=== PATIENT | male | born 1935 | race Caucasian/White ===

== ENCOUNTER 2017-12-17 00:20 | Day surgery (SDC) | payer MEDICARE, BC ==
[~2017-12-17] VITALS: Ht 177.8 cm; Wt 82.1 kg
[~2017-12-17 00:20] MED LIST: ADV100/50 INH; ALB0.5 INH; ALB6.7R INH; ALBMDV INH; ASPI-715 PO; ATOR40TA69 PO; ATR80PT PO; CEP500 PO; CET10 PO; CHOL10005 PO; COM14R IH; COM14R INH; CYA100 PO; DIP25 PO; DOXY-179 PO; ERG400 PO; LEVO75TA73 PO; LORA-629 PO; LUTE1CAP PO; METO1TAB5 PO; METO25TA23 PO; METO37.5 PO; MON10 PO; MULT1CAP59 PO; NIA100 PO; OMEG-11 PO; PRE10 PO; PRED20TA6 PO; RIVA20TA PO; SIM10 PO; SIMV-44 PO; TAMS0.4C70 PO; VAL80 PO; VALS1TAB96 PO; VALS40TA7 PO; VERA180T53 PO; WARF2.5T11 PO; WARF5TAB23 PO; ZINC50TA43 PO
--- NOTE | 2017-12-17 07:00 | Post Operative Progress Note ---
Post Operative Progress Note Date: December 17, 2017 Time: 10:10 Surgeon: pranav Anesthesia: dr ahumada Pre-Op Diagnosis: history of polyps Post-Op Diagnosis: 2 mm polyp in rightr colon and sigmoid diverticula Procedure(s): colonoscopy and poypectomy YOVANI RODRIGUEZ MD December 17, 2017 07:00
--- NOTE | 2017-12-17 07:01 | Short(Outpt) Discharge Summary ---
Discharge Summary Reason for Hosp/Final Diag: (1) Encounter for colonoscopy due to history of adenomatous colonic polyps Hospital Course & Plan: 2 mm polyp in right colon and sigmoid diverticula Departure Discharge to: Home Discharge Instructions Home Meds Reported Medications Metoprolol Tartrate (Metoprolol Tartrate) 37.5 Mg Tablet, 12.5 MG PO QDAY 12/11/17 Lutein/Zeaxanthin (LUTEIN-ZEAXANTHIN 25-5 MG SFGL) 1 Each Capsule, 1 EACH PO BID , CAPSULE 12/11/17 Loratadine (LORATADINE) 10 Mg Tablet, 10 MG PO PRN 12/11/17 Levothyroxine Sodium (LEVOTHYROXINE SODIUM) 75 Mcg Tablet, 88 MCG PO QDAY, TAB 12/11/17 Zinc Gluconate (ZINC) 50 Mg Tablet, 50 MG PO QDAY 12/11/17 Rivaroxaban 20 Mg (XARELTO 20 MG) 20 Mg Tablet, 20 MG PO QDAY, TAB 12/11/17 Valsartan (DIOVAN) 80 Mg Tablet, 80 MG PO QDAY 12/11/17 Tamsulosin Hcl (TAMSULOSIN HCL) 0.4 Mg Cap.er.24h, 0.8 MG PO, CAP 12/11/17 Atorvastatin Calcium (ATORVASTATIN CALCIUM) 40 Mg Tablet, 1 TAB PO BID, TAB 12/11/17 Verapamil Hcl (VERAPAMIL ER) 180 Mg Tablet.er, 180 MG PO DAILY 02/12/16 Cholecalciferol (Vitamin D3) (VITAMIN D3) 1,000 Unit Tablet, 1000 UNIT PO DAILY , TAB 02/12/16 Diphenhydramine Hcl (Benadryl) 25 Mg Cap, 25 MG PO HS Y for PRN 01/09/12 Cetirizine Hcl (Zyrtec) 10 Mg Tab, 10 MG PO BID Y for PRN 01/09/12 Cyanocobalamin (VITAMIN B-12 (OR EQUIV)) 100 Mcg Tab, 100 MCG PO DAILY 01/09/12 Aspirin (Aspirin) 81 Mg Tablet.dr, 81 MG PO BID 01/09/12 Albuterol/Ipratropium (Combivent Inhaler) 14.7 Gm Aer.w.adap, 18 MCG IH 2 PUFFS BID 01/09/12 Montelukast Sodium (Singulair) 10 Mg Tab, 10 MG PO QHS 01/09/12 Multivitamins (Multivitamin) 1 Each Capsule, 1 EACH PO 09/29/11 Discontinued Reported Medications Valsartan (DIOVAN) 40 Mg Tablet, 40 MG PO QDAY 02/12/16 Warfarin Sodium (WARFARIN SODIUM) 5 Mg Tablet, 5 MG PO QDAY 12/13/13 Atorvastatin (LIPITOR) 80 Mg Tab, 1 TAB PO QDAY, TAB TAKE ONE TABLET BY MOUTH ONCE A DAY AT BED TIME 12/13/13 Discontinued Scripts Tamsulosin Hcl (TAMSULOSIN HCL) 0.4 Mg Cap.er.24h, 0.4 MG PO BID, #180 TAB 3 Refills Prov:ERIK SHIN [employer]-BC, ONC 03/24/17 Diet: High Fiber Activity: As Tolerated YOVANI RODRIGUEZ MD December 17, 2017 07:01
[2017-12-17] MEDS ORDERED: PROPOFOL EMUL(*) 10MG/ML 20 ML 40 ML ONE (07:11)
[2017-12-17 08:26] VITALS: BP 143/88
[2017-12-17] MEDS ORDERED: LIDOCAINE/SOD BICARB 8.4% SYR ID ONE (08:30)
[2017-12-17] MEDS ORDERED: NORMOSOL R SOLN(*) 1000 ML BAG 1,000 ML IV PRN (08:30)
[2017-12-17 10:12] VITALS: BP 96/48
[2017-12-17 10:27] VITALS: BP 115/56
[2017-12-17 10:48] VITALS: BP_SYST 116; BP_SYST 139; BP_DIAS 64; BP_DIAS 70
--- NOTE | 2017-12-17 15:20 | OPERATIVE REPORT 1 ---
EVENT DATE: December 17, 2017 SURGEON: Ronaldo Avendano MD ANESTHESIOLOGIST: Jona Adrian MD ANESTHESIA: Sedation. PREOPERATIVE DIAGNOSES 1. Surveillance colonoscopy. 2. Personal history of polyps. POSTOPERATIVE DIAGNOSES 1. A 2 mm polyp in the right colon. 2. Diverticulosis in the sigmoid colon. PROCEDURE PERFORMED Colonoscopy with polypectomy. DESCRIPTION OF PROCEDURE Patient was placed in the left lateral decubitus position and given intravenous sedation. Rectal exam was unremarkable. Flexible colonoscope was inserted and advanced to the cecum. He had a good prep. He had quite a bit of liquid stool. We spent some time suctioning. The ileocecal valve, base of the cecum, appendiceal orifice were identified. Scope was retroflexed in the cecum. It was then slowly withdrawn. In the mid right colon, he had a small, 2 mm projection. This was removed with the cold cup. The rest of the right colon, transverse, and descending colon were normal. He had diverticula in the sigmoid colon. No evidence of diverticulitis. Rectum was normal. Scope was retroflexed. That appeared to be normal. Patient tolerated the procedure well. No apparent complication. Patient most likely will not require repeat colonoscopy because of his age. [facility]
== END 2017-12-17 11:05 | disposition home or self-care (01) ==
LOC: OR 00:20
PROVIDERS: ATTEND Surgery
DX: Z12.11 Encounter for screening for malignant neoplasm of colon (principal); D12.6 Benign neoplasm of colon, unspecified; Z86.010 Personal history of colon polyps; K57.30 Diverticulosis of large intestine without perforation or abscess without bleeding
CPT/HCPCS: 00811; 45380; 88305; J2704

== ENCOUNTER → 2018-03-21 | Outpatient (CLI) | payer MEDICARE, BC ==
--- NOTE | 2018-03-21 11:31 | RADIOLOGY IMAGING REPORT ---
[place] [facility] [place]: Jona Lara : 1935 MR: [id number] V: [id number] EXAM DATE: ORDERING PHYSICIAN: DORY DELUCA TECHNOLOGIST: Location: [facility] Patient: Jona Lara : 1935 Visit/Account:[id number] Date of Sevice: 03/21/[address] scan without contrast HISTORY: Fall COMPARISONS: None TECHNIQUE: Non-contrast head CT was performed with sagittal and coronal reformations. One of the following dose optimization techniques was utilized in the performance of this exam: autom ated exposure control; adjustment of the mA and/or kV according to patient size; or use of iterative reconstruction technique. Specific details can be referenced in the facility's radiology CT exam ope rational policy. FINDINGS: There is no intracranial hemorrhage, hydrocephalus or midline shift. The basal cisterns, young-white differentiation, and convexity sulci are maintained. Cataract postsurgical change noted. Right basal ganglia perivascular space noted. Patchy white matter hypoattenuation. Clear mastoid air cells. Mild to moderate left maxillary sinus mucosal thickening. No acute osseous a bnormality. IMPRESSION: No acute intracranial abnormality. Mild to moderate chronic small vessel ischemic change. Report Dictated By: Janak Garcia MD at 03/21/2018 11:24 AM Report E-Signed By: Janak Garcia MD at 03/21/2018 11:27 AM WSN:[id number]
== END ==
LOC: CT 10:57
PROVIDERS: ATTEND Family Medicine
DX: I67.82 Cerebral ischemia (principal)

== ENCOUNTER → 2018-04-19 | Emergency (ER) | payer MEDICARE, BC ==
[~2018-04-19] MED LIST changes: +CYAN250T15 PO; +DIPHTH/TETANUS/ACEL. PERTUSSIS IM ONLY ONE; +IOPAMIDOL 76% 75 ML INFUS BTL 0 ML ONE; +IOPAMIDOL 76% 75 ML INFUS BTL 75 ML ONE; +LEVO88TA45 PO; +NS(*) 0.9% 1000 ML BAG 1,000 ML IV ONE; +ONDA4TAB PO; +ONDANSETRON 4 MG ODT TABDP SL ONE; +ONDANSETRON 4 MG ODT TH SL ONE; +TRAM-420 PO; +traMADol 50 MG TAB TH 2 TAB/BOTTLE PO ONE
--- NOTE | 2018-04-19 16:46 | ER Report ---
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 He states that they minutes prior to arrival his right knee buckled underneath him as he was going down the stairs. He subsequently fell down 14 stairs. No loss of consciousness. No neck pain. No focal neurologic deficits. He states that his only focal area of pain is in his right scapula. He otherwise has no complaints, and does not want any pain medication. Remainder of the 14 system rev: Yes (RENETTA GORDON MD) Allergies: Coded Allergies: No Known Drug Allergies (Unverified , 04/19/18) Home Meds Active Scripts Tramadol Hcl (TRAMADOL HCL) 50 Mg Tablet, 1 TAB PO Q6H, #15 MG TAKE ONE TABLETS BY MOUTH EVERY SIX HOURS NEEDED Prov:LLOYD SHINY Holly DO 04/19/18 Ondansetron (ZOFRAN ODT) 4 Mg Tab.rapdis, 4 MG PO every 6 hours PRN for NAUSEA/VOMITING, #15 TAB TAKE 1 TABLET BY MOUTH EVERY 12 HOURS Prov:RYAN SHIN Holly DO 04/19/18 Reported Medications Metoprolol Succinate (METOPROLOL SUCCINATE) 25 Mg Tab.er.24h, 0.5 TAB PO QDAY, TAB 04/19/18 Levothyroxine Sodium (LEVOTHYROXINE SODIUM) 88 Mcg Tablet, 88 MCG PO QDAY 04/19/18 Cyanocobalamin (Vitamin B-12) (VITAMIN B-12) 250 Mcg Tablet, 250 MCG PO DAILY 04/19/18 Lutein/Zeaxanthin (LUTEIN-ZEAXANTHIN 25-5 MG SFGL) 1 Each Capsule, 1 EACH PO BID, CAPSULE 12/11/17 Loratadine (LORATADINE) 10 Mg Tablet, 10 MG PO PRN 12/11/17 Zinc Gluconate (ZINC) 50 Mg Tablet, 50 MG PO QDAY 12/11/17 Rivaroxaban 20 Mg (XARELTO 20 MG) 20 Mg Tablet, 20 MG PO QDAY, TAB 12/11/17 Valsartan (DIOVAN) 80 Mg Tablet, 80 MG PO QDAY 12/11/17 Tamsulosin Hcl (TAMSULOSIN HCL) 0.4 Mg Cap.er.24h, 0.8 MG PO, CAP 12/11/17 Atorvastatin Calcium (ATORVASTATIN CALCIUM) 40 Mg Tablet, 1 TAB PO BID, TAB 12/11/17 Verapamil Hcl (VERAPAMIL ER) 180 Mg Tablet.er, 180 MG PO DAILY 02/12/16 Cholecalciferol (Vitamin D3) (VITAMIN D3) 1,000 Unit Tablet, 1000 UNIT PO DAILY, TAB 02/12/16 Cetirizine Hcl (Zyrtec) 10 Mg Tab, 10 MG PO DAILY PRN for PRN 01/09/12 Aspirin (Aspirin) 81 Mg Tablet.dr, 81 MG PO BID 01/09/12 Albuterol/Ipratropium (Combivent Inhaler) 14.7 Gm Aer.w.adap, 18 MCG IH 2 PUFFS BID 01/09/12 Montelukast Sodium (Singulair) 10 Mg Tab, 10 MG PO QHS 01/09/12 Multivitamins (Multivitamin) 1 Each Capsule, 1 EACH PO 09/29/11 Discontinued Reported Medications Metoprolol Tartrate (Metoprolol Tartrate) 37.5 Mg Tablet, 12.5 MG PO QDAY 12/11/17 Levothyroxine Sodium (LEVOTHYROXINE SODIUM) 75 Mcg Tablet, 88 MCG PO QDAY, TAB 12/11/17 Diphenhydramine Hcl (Benadryl) 25 Mg Cap, 25 MG PO HS PRN for PRN 01/09/12 Cyanocobalamin (VITAMIN B-12 (OR EQUIV)) 100 Mcg Tab, 100 MCG PO DAILY 01/09/12 Reviewed Nurses Notes: Yes Old Medical Records Reviewed: Yes (RENETTA GORDON MD) Hx Smoking: No (quit 1965 x 15 yrs ) Smoking Status: Former Smoker Hx Substance Use Disorder: No Hx Alcohol Use: Yes (RARE) (RENETTA GORDON MD) Constitutional Vital Sign - Last 24 Hours 04/19/18 04/19/18 04/19/18 04/19/18 16:48 16:50 17:00 17:15 Temp 98.5 Pulse 87 55 56 Resp 16 6 10 B/P (MAP) 147/69 147/69 (95) Pulse Ox 95 95 96 O2 Delivery Room Air 04/19/18 04/19/18 04/19/18 04/19/18 17:30 17:45 18:15 18:20 Pulse 56 53 49 50 Resp 8 23 24 10 B/P (MAP) 130/61 (84) Pulse Ox 95 94 95 98 04/19/18 04/19/18 04/19/18 04/19/18 18:25 18:30 18:35 18:40 Pulse 49 48 51 48 Resp 20 15 26 20 B/P (MAP) 132/61 (84) Pulse Ox 96 95 92 97 04/19/18 04/19/18 04/19/18 04/19/18 18:45 18:50 18:55 19:00 Pulse 48 47 49 50 Resp 22 15 15 16 B/P (MAP) 142/65 (90) Pulse Ox 97 97 97 96 04/19/18 04/19/18 04/19/18 04/19/18 19:05 19:10 19:15 19:34 Pulse 63 64 60 62 Resp 22 14 20 12 Pulse Ox 92 92 94 95 04/19/18 04/19/18 04/19/18 04/19/18 19:39 19:44 19:49 19:54 Pulse 61 61 58 59 Resp 15 12 14 14 Pulse Ox 95 96 95 95 04/19/18 04/19/18 04/19/18 04/19/18 19:59 20:00 20:04 20:24 Pulse 60 68 Resp 15 17 B/P (MAP) 134/62 (86) Pulse Ox 96 95 95 04/19/18 04/19/18 04/19/18 04/19/18 20:29 20:30 20:34 20:39 Pulse 68 69 66 B/P (MAP) 108/62 (77) Pulse Ox 97 97 95 04/19/18 04/19/18 04/19/18 04/19/18 20:44 20:49 20:54 20:59 Pulse 67 69 68 70 Pulse Ox 95 95 96 95 04/19/18 04/19/18 21:00 21:04 Pulse 66 B/P (MAP) 122/80 (94) Pulse Ox 95 Intake and Output 04/19/18 04/19/18 04/20/18 15:00 23:00 07:00 Intake Total 1000 ml Balance 1000 ml (RYAN SHIN DO) Physical Exam General Appearance: The patient is alert, has no immediate need for airway protection and no current signs of toxicity. Head: Hematoma to the left forehead Eyes: Pupils equal and round no injection. Respiratory: Chest is non tender, lungs are clear to auscultation. No tenderness to palpation of the chest. No crepitus. Cardiac: regular rate and rhythm Gastrointestinal: Abdomen is soft and non tender, no masses, bowel sounds normal. Musculoskeletal: No focal bony tenderness to palpation. Multiple areas of hematomas Neck: Neck is supple and non tender. Extremities have full range of motion and are non tender. Skin: Multiple areas of skin tears. No lacerations. Neuro: Moves all extremities equally DIFFERENTIAL DIAGNOSIS: After history and physical exam differential diagnosis was considered for internal bleeding, fractures, dislocations (RENETTA GORODN MD) Medical Decision Making Data Points Result Diagram: 04/19/18 1657 04/19/18 1657 Laboratory Hematology Test 04/19/18 16:57 Red Blood Count 5.22 M/uL (4.00-5.60) Mean Corpuscular Volume 89.2 fL (80.0-96.0) Mean Corpuscular Hemoglobin 30.1 pg (26.0-33.0) Mean Corpuscular Hemoglobin Concent 33.7 g/dL (32.0-36.0) Red Cell Distribution Width 13.7 % (11.5-14.5) Mean Platelet Volume 8.3 fL (7.2-11.1) Neutrophils (%) (Auto) 59.9 % (39.4-72.5) Lymphocytes (%) (Auto) 26.3 % (17.6-49.6) Monocytes (%) (Auto) 8.4 % (4.1-12.4) Eosinophils (%) (Auto) 3.2 % (0.4-6.7) Basophils (%) (Auto) 2.2 % (0.3-1.4) Nucleated RBC Relative Count (auto) 0.1 /100WBC Neutrophils # (Auto) 4.5 K/uL (2.0-7.4) Lymphocytes # (Auto) 2.0 K/uL (1.3-3.6) Monocytes # (Auto) 0.6 K/uL (0.3-1.0) Eosinophils # (Auto) 0.2 K/uL (0.0-0.5) Basophils # (Auto) 0.2 K/uL (0.0-0.1) Nucleated RBC Absolute Count (auto) 0.01 K/uL Sodium Level 140 mmol/L (137-145) Potassium Level 3.9 mmol/L (3.5-5.0) Chloride Level 103 mmol/L (98-107) Carbon Dioxide Level 26 mmol/L (22-30) Blood Urea Nitrogen 16 mg/dl (9-21) Creatinine 0.70 mg/dl (0.66-1.25) Glomerular Filtration Rate Calc > 60.0 Random Glucose 109 mg/dl (75-110) Calcium Level 9.5 mg/dl (8.4-10.2) Total Bilirubin 0.8 mg/dl (0.2-1.3) Aspartate Amino Transf (AST/SGOT) 52 U/L (0-35) Alanine Aminotransferase (ALT/SGPT) 55 U/L (0-56) Alkaline Phosphatase 69 U/L (0-126) Total Protein 6.9 g/dl (6.3-8.2) Albumin 4.1 g/dl (3.5-5.0) Chemistry Test 04/19/18 16:57 White Blood Count 7.6 k/uL (4.5-11.0) Red Blood Count 5.22 M/uL (4.00-5.60) Hemoglobin 15.7 g/dL (14.0-18.0) Hematocrit 46.6 % (42.0-52.0) Mean Corpuscular Volume 89.2 fL (80.0-96.0) Mean Corpuscular Hemoglobin 30.1 pg (26.0-33.0) Mean Corpuscular Hemoglobin Concent 33.7 g/dL (32.0-36.0) Red Cell Distribution Width 13.7 % (11.5-14.5) Platelet Count 170 K/uL (150-450) Mean Platelet Volume 8.3 fL (7.2-11.1) Neutrophils (%) (Auto) 59.9 % (39.4-72.5) Lymphocytes (%) (Auto) 26.3 % (17.6-49.6) Monocytes (%) (Auto) 8.4 % (4.1-12.4) Eosinophils (%) (Auto) 3.2 % (0.4-6.7) Basophils (%) (Auto) 2.2 % (0.3-1.4) Nucleated RBC Relative Count (auto) 0.1 /100WBC Neutrophils # (Auto) 4.5 K/uL (2.0-7.4) Lymphocytes # (Auto) 2.0 K/uL (1.3-3.6) Monocytes # (Auto) 0.6 K/uL (0.3-1.0) Eosinophils # (Auto) 0.2 K/uL (0.0-0.5) Basophils # (Auto) 0.2 K/uL (0.0-0.1) Nucleated RBC Absolute Count (auto) 0.01 K/uL Glomerular Filtration Rate Calc > 60.0 Calcium Level 9.5 mg/dl (8.4-10.2) Total Bilirubin 0.8 mg/dl (0.2-1.3) Aspartate Amino Transf (AST/SGOT) 52 U/L (0-35) Alanine Aminotransferase (ALT/SGPT) 55 U/L (0-56) Alkaline Phosphatase 69 U/L (0-126) Total Protein 6.9 g/dl (6.3-8.2) Albumin 4.1 g/dl (3.5-5.0) (RYAN SHIN DO) EKG/Imaging Imaging Results: CT scan of the head was obtained. The results of the study are no acute f indings. The study was read by the radiologist. I viewed the images myself on the PACS system. Results: CT scan of the C-spine without contrast was obtained. The results of the study are no acute findings. The study was read by the radiologist. I viewed the images myself on the PACS system. Results: CT scan of the chest with contrast was obtained. The results of the study are CHEST W/O CONTRAST HISTORY: fall multiple contusion on Xarelto TECHNIQUE: CT chest without intravenous contrast. One of the following dose optimization techniques was utilized in the performa nce of this exam: Automated exposure control; adjustment of the mA and/or kV according to the patient's size; or use of an iterative reconstruction technique. Specific details can be referenced in the facility's radiology CT exam operational policy. CONTRAST: None. COMPARISON: CT abdomen 04/19/2018 FINDINGS: Heart/vessels: Heart is not enlarged. Dense atherosclerotic calcifications of the arch vessels and coronary arteries. Aortic valvuloplasty. Mitral annular calcifications. Mediastinum: No adenopathy Lymph nodes: Negative. Lungs/pleura: Calcified granuloma at the left apex. No additional pulmonary parenchymal abnormalities. Central airways are patent. Visualized upper abdomen: Kidneys appear mildly atrophic, contrast in the collecting system Bones/soft tissues: Soft tissue hematoma involving the right shoulder/back better characterized by this examination; hematoma appears to involve the supraspinatus, teres and latissimus muscles and extends to the midline back. No adjacent scapular or displaced rib fracture is identified. Subtle cortical irregularity is seen within the posterior aspect of the fifth rib (series 2, image 34), equivocal for fracture. Additional subtle irregularity is noted within the anterior aspect of the eighth rib (series 2, image 11) Flowing osteophytosis of the mid thoracic spine may reflect dish. IMPRESSION: Left back hematoma redemonstrated without underlying scapular or displaced rib fracture. Equivocal nondisplaced fifth and eighth rib fractures, correlate with point tenderness. Negative underlying pulmonary parenchymal abnormality or pneumothorax Additional chronic findings as above. The study was read by the radiologist. I viewed the images myself on the PACS system. Results: CT scan of the abdomen and pelvis with IV contrast was obtained. The results of the study are ABDOMEN/PELVIS WITH CONTRAST Fell down steps on Xarelto TECHNIQUE: Spiral scan was through the abdomen and pelvis during injection of nonionic iodinated intravenous contrast. Contrast: 75 mL of IV [id number]. COMPARISON STUDIES: none. One of the following dose optimization techniques was utilized in the performance of this exam: Automated exposure control; adjustment of the mA and/or kV according to the patient's size; or use of an iterative reconstruction technique. Specific details can be referenced in the facility's radiology CT exam operational policy. FINDINGS: Liver / biliary: No liver laceration. No perihepatic fluid. Gallbladder unremarkable Pancreas: negative Spleen: No splenic laceration or perisplenic fluid Adrenal glands: negative Kidneys / retroperitoneum: negative Pelvic structures: Bladder unremarkable. Prostate seeds noted. Bowel / peritoneum / mesenteries: No colonic mass lesion stricture or inflammatory change. No interloop fluid. Vessels: Atherosclerotic disease. No aneurysmal change. No retroperitoneal hematoma noted. Musculoskeletal / Body wall: negative Lymph node assessment: No obvious acute fractures of the visualized lower thoracic lumbar are sacral spine. No pelvic fractures noted. Both hip joints well-maintained. Central and right paravertebral soft tissue change compatible with a hematoma extending from the L4 through the coccygeal region. Lower chest: Unremarkable. No pneumothorax. Questionable anterior eighth right rib fracture nondisplaced IMPRESSION: 1. Soft tissue hematoma involving the central right lower back as described. 2. Questionable anterior right anterior eighth rib fracture artifact. Recommend clinical correlation The study was read by the radiologist. I viewed the images myself on the PACS system. (RYAN SHIN DO) ED Course/Re-evaluation ED Course Care was assumed at shift change with diagnostic CT is pending, head, neck, chest, abdomen and pelvis. Patient on Xarelto. Patient with a large hematoma on his right flank and his right arm. Diagnostic CT show potentially tooth fractured ribs on the right side. A hematoma. Head and neck are unremarkable. Patient was advised conservative treatment. Patient was offered admission if he thought it was necessary. He does have 2 possible fractured ribs He has leftover spirometer at home which he will use to keep his aeration up. He is given tramadol for pain relief, Zofran for nausea. Patient advised a low threshold return for any worsening. Decision to Disposition Date: Apr 19, 2018 Decision to Disposition Time: 20:58 (RYAN SHIN DO) Depart Departure Latest Vital Signs Vital Signs Date Time Temp Pulse Resp B/P (MAP) Pulse Ox O2 Delivery O2 Flow Rate FiO2 04/19/18 21:04 66 95 04/19/18 21:00 122/80 (94) 04/19/18 20:04 17 04/19/18 16:48 98.5 Room Air (RYAN SHIN DO) Impression: Primary Impression: Fall (on) (from) other stairs and steps, initial encounter Additional Impressions: Multiple contusions Traumatic hematoma of lower back Hematoma of arm Fracture, ribs Condition: Improved Disposition: HOME OR SELF-CARE Referrals: KATH GARIBAY DO (PCP) New Scripts Tramadol Hcl (TRAMADOL HCL) 50 Mg Tablet 1 TAB PO Q6H, #15 MG TAKE ONE TABLETS BY MOUTH EVERY SIX HOURS NEEDED Prov: RYAN SHIN DO 04/19/18 Ondansetron (ZOFRAN ODT) 4 Mg Tab.rapdis 4 MG PO every 6 hours PRN for NAUSEA/VOMITING, #15 TAB TAKE 1 TABLET BY MOUTH EVERY 12 HOURS Prov: RYAN SHIN DO 04/19/18 Patient Instructions: Contusion in Adults (ED), Rib Fracture (ED) Additional Instructions: Apply ice packs to affected areas Hold Xarelto for 4 days Wear six-inch Og wraps for compression of hematomas Follow-up with primary care and cardiology as planned Return to the ER for any worsening, especially difficulty breathing fever chills or coughing up blood Problem Qualifiers Additional Impressions: Traumatic hematoma of lower back Encounter type: initial encounter Qualified Codes: S30.0XXA - Contusion of lower back and pelvis, initial encounter Hematoma of arm Encounter type: initial encounter Laterality: left Qualified Codes: S40.022A - Contusion of left upper arm, initial encounter Fracture, ribs Encounter type: initial encounter Rib fracture type: multiple ribs Fracture type: closed Laterality: right Qualified Codes: S22.41XA - Multiple fractures of ribs, right side, initial encounter for closed fracture RENETTA GORDON MD Apr 19, 2018 16:46 RYAN SHIN DO Apr 19, 2018 21:02
[2018-04-19 17:27] LABS: PLATELET COUNT, AUTOMATED 170 K/uL (150-450)
--- NOTE | 2018-04-19 20:01 | RADIOLOGY IMAGING REPORT ---
FACILITY: [facility] - [place] PATIENT NAME: Jona Lara : 1935 MR: [id number] V: [id number] EXAM DATE: ORDERING PHYSICIAN: RENETTA GORDON TECHNOLOGIST: Location: [facility] [place] Patient: Jona Lara : 1935 Visit/Account:[id number] Date of Sevice: 04/19/2018 CT examination of the head and cervical spine without contrast. Indication: Fall, contusions. On Xarelto Comparison: None available. Technique: Noncontrast CT images of the head and cervical spine were obtained with 2.5 mm axial [facility] e images. Sagittal and coronal reformatted images were obtained reviewed. CT with contrast of the chest was performed. Sagittal, coronal images were reviewed. Findings: Head: Small hematoma is noted overlying the right frontal bone. 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 Given the lung volumes, th e ventricular system has a normal size and appearance. There is no evidence of intracranial mass, mas s effect, midline shift, intraparenchymal hemorrhage or abnormal extra-axial fluid collection. The ca lvarium is intact. Mild mucosal thickening is seen in the left maxillary sinus. Mastoid air cells are unremarkable for acute finding. Mild under pneumatization of the left mastoid air cells. Globes and retrobulbar fat are normal. Atherosclerotic disease is noted within the carotid siphons and the dista l vertebral arteries. Cervical spine: Prevertebral soft tissues are within normal limits. There is mild to moderate multilevel spondylotic changes with disc space narrowing, increased endplate sclerosis and endplate spurring. This is most n otable C5-C6, C6-C7 and C7-T1. The facets align appropriately. No fracture or acute destructive osseo us process. Impression: 1. No evidence of acute intracranial finding 2. Mild to moderate multilevel spondylotic changes cervical spine without acute finding. Report Dictated By: Isrrael Ingram MD at 04/19/2018 7:49 PM Report E-Signed By: Isrrael Ingram MD at 04/19/2018 7:57 PM WSN:[id number]
--- NOTE | 2018-04-19 20:02 | RADIOLOGY IMAGING REPORT ---
FACILITY: [facility] - [place] PATIENT NAME: Jona Lara : 1935 MR: [id number] V: [id number] EXAM DATE: ORDERING PHYSICIAN: RENETTA GORDON TECHNOLOGIST: Location: [facility] Patient: Jona Lara : 1935 Visit/Account:[id number] Date of Sevice: 04/19/2018 CT examination of the head and cervical spine without contrast. Indication: Fall, contusions. On Xarelto Comparison: None available. Technique: Noncontrast CT images of the head and cervical spine were obtained with 2.5 mm axial [facility] e images. Sagittal and coronal reformatted images were obtained reviewed. CT with contrast of the chest was performed. Sagittal, coronal images were reviewed. Findings: Head: Small hematoma is noted overlying the right frontal bone. 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 Given the lung volumes, th e ventricular system has a normal size and appearance. There is no evidence of intracranial mass, mas s effect, midline shift, intraparenchymal hemorrhage or abnormal extra-axial fluid collection. The ca lvarium is intact. Mild mucosal thickening is seen in the left maxillary sinus. Mastoid air cells are unremarkable for acute finding. Mild under pneumatization of the left mastoid air cells. Globes and retrobulbar fat are normal. Atherosclerotic disease is noted within the carotid siphons and the dista l vertebral arteries. Cervical spine: Prevertebral soft tissues are within normal limits. There is mild to moderate multilevel spondylotic changes with disc space narrowing, increased endplate sclerosis and endplate spurring. This is most n otable C5-C6, C6-C7 and C7-T1. The facets align appropriately. No fracture or acute destructive osseo us process. Impression: 1. No evidence of acute intracranial finding 2. Mild to moderate multilevel spondylotic changes cervical spine without acute finding. Report Dictated By: Isrrael Ingram MD at 04/19/2018 7:49 PM Report E-Signed By: Isrrael Ingram MD at 04/19/2018 7:57 PM WSN:[id number]
--- NOTE | 2018-04-19 20:04 | RADIOLOGY IMAGING REPORT ---
[facility] PATIENT NAME: Jona Lara : 1935 MR: [id number] V: [id number] EXAM DATE: ORDERING PHYSICIAN: RENETTA GORDON TECHNOLOGIST: Location: [facility] [place] Patient: Jona Lara : 1935 Visit/Account:[id number] Date of Sevice: 04/19/2018 ABDOMEN/PELVIS WITH CONTRAST Fell down steps on Xarelto TECHNIQUE: Spiral scan was through the abdomen and pelvis during injection of nonionic iodinated in travenous contrast. Contrast: 75 mL of IV Isovue-370. COMPARISON STUDIES: none. One of the following dose optimization techniques was utilized in the performance of this exam: Autom ated exposure control; adjustment of the mA and/or kV according to the patient's size; or use of an i terative reconstruction technique. Specific details can be referenced in the facility's radiology C T exam operational policy. FINDINGS: Liver / biliary: No liver laceration. No perihepatic fluid. Gallbladder unremarkable Pancreas: negative Spleen: No splenic laceration or perisplenic fluid Adrenal glands: negative Kidneys / retroperitoneum: negative Pelvic structures: Bladder unremarkable. Prostate seeds noted. Bowel / peritoneum / mesenteries: No colonic mass lesion stricture or inflammatory change. No interl oop fluid. Vessels: Atherosclerotic disease. No aneurysmal change. No retroperitoneal hematoma noted. Musculoskeletal / Body wall: negative Lymph node assessment: No obvious acute fractures of the visualized lower thoracic lumbar are sacral spine. No pelvic fractures noted. Both hip joints well-maintained. Central and right paravertebral soft tissue change compatible with a hematoma extending from the L4 through the coccygeal region. Lower chest: Unremarkable. No pneumothorax. Questionable anterior eighth right rib fracture nondisp laced IMPRESSION: 1. Soft tissue hematoma involving the central right lower back as described. 2. Questionable anterior right anterior eighth rib fracture artifact. Recommend clinical correlatio n Report Dictated By: Tono Cleveland MD at 04/19/2018 7:47 PM Report E-Signed By: Tono Cleveland MD at 04/19/2018 8:01 PM WSN:[email or web address]
--- NOTE | 2018-04-19 20:48 | RADIOLOGY IMAGING REPORT ---
FACILITY: [facility] PATIENT NAME: Jona Lara : 1935 MR: [id number] V: [id number] EXAM DATE: ORDERING PHYSICIAN: RYAN SHIN TECHNOLOGIST: Location: [facility] - [place] Patient: Jona Lara : 1935 Visit/Account:[id number] Date of Sevice: 04/19/2018 CHEST W/O CONTRAST HISTORY: fall multiple contusion on Xarelto TECHNIQUE: CT chest without intravenous contrast. One of the following dose optimization techniques was utilized in the performance of this exam: Autom ated exposure control; adjustment of the mA and/or kV according to the patient's size; or use of an i terative reconstruction technique. Specific details can be referenced in the facility's radiology C T exam operational policy. CONTRAST: None. COMPARISON: CT abdomen 04/19/2018 FINDINGS: Heart/vessels: Heart is not enlarged. Dense atherosclerotic calcifications of the arch vessels and c oronary arteries. Aortic valvuloplasty. Mitral annular calcifications. Mediastinum: No adenopathy Lymph nodes: Negative. Lungs/pleura: Calcified granuloma at the left apex. No additional pulmonary parenchymal abnormalitie s. Central airways are patent. Visualized upper abdomen: Kidneys appear mildly atrophic, contrast in the collecting system Bones/soft tissues: Soft tissue hematoma involving the right shoulder/back better characterized by t his examination; hematoma appears to involve the supraspinatus, teres and latissimus muscles and exte nds to the midline back. No adjacent scapular or displaced rib fracture is identified. Subtle cortica l irregularity is seen within the posterior aspect of the fifth rib (series 2, image 34), equivocal f or fracture. Additional subtle irregularity is noted within the anterior aspect of the eighth rib (se cal 2, image 11) Flowing osteophytosis of the mid thoracic spine may reflect dish. IMPRESSION: Left back hematoma redemonstrated without underlying scapular or displaced rib fracture. Equivocal no ndisplaced fifth and eighth rib fractures, correlate with point tenderness. Negative underlying pulmo nary parenchymal abnormality or pneumothorax Additional chronic findings as above. Report Dictated By: Dean Michel MD at 04/19/2018 8:30 PM Report E-Signed By: Dean Michel MD at 04/19/2018 8:44 PM WSN:[id number]
[2018-04-19 21:00] VITALS: BP 122/80
== END ==
LOC: ER 16:52
DX: S30.0XXA Contusion of lower back and pelvis, initial encounter (principal); S40.022A Contusion of left upper arm, initial encounter; S22.41XA Multiple fractures of ribs, right side, initial encounter for closed fracture; Z79.01 Long term (current) use of anticoagulants; N26.1 Atrophy of kidney (terminal); M48.02 Spinal stenosis, cervical region
CPT/HCPCS: 70450; 71250; 72125; 74177; 85025; 90471; 90715; 99284; A9270; J7030; Q0162; Q9967; 82040; 82247; 82310; 82374; 82435; 82565; 82947; 84075; 84132; 84155; 84295; 84450; 84460; 84520; C9399; S0119

== ENCOUNTER 2018-04-24 10:53 | Inpatient (IN) | payer MEDICARE, BC ==
[2018-04-24] VITALS (8 sets, daily range): BP systolic 111–147; BP diastolic 43–63
[~2018-04-24] VITALS: Ht 180.3 cm; Wt 91.6 kg
[~2018-04-24 10:53] MED LIST changes: -DIPHTH/TETANUS/ACEL. PERTUSSIS IM ONLY ONE; -IOPAMIDOL 76% 75 ML INFUS BTL 0 ML ONE; -IOPAMIDOL 76% 75 ML INFUS BTL 75 ML ONE; -NS(*) 0.9% 1000 ML BAG 1,000 ML IV ONE; -ONDANSETRON 4 MG ODT TABDP SL ONE; -ONDANSETRON 4 MG ODT TH SL ONE; -traMADol 50 MG TAB TH 2 TAB/BOTTLE PO ONE
--- NOTE | 2018-04-24 11:08 | ER Report ---
History and Physical Time Seen By MD: 11:08 Hx. of Stated Complaint: FELL ON THURSDAY. WAS HERE FOR EVALUATION. BROKEN RIBS. HERE TODAY FOR NAUSE, WEAKNESS, OVERALL DISCOMFORT HPI/ROS CHIEF COMPLAINT: Nausea, dizziness HISTORY OF PRESENT ILLNESS: 83-year-old male patient presents to emergency room with complaint of nausea and dizziness. Patient states that he had a fall on Thursday. He fell down 14 stairs. He states he was seen here in the emergency room. He had a workup done which showed 2 rib fractures. Patient states that he has been feeling worse over the last couple of days. He states that he has had some nausea and dizziness. He states the dizziness is worse when he goes from a horizontal position to a vertical position. Patient states he's been nauseated but has not vomited. Patient states he does have pain, however he does not like the pain medication and has not been taking that. Patient denies having any fevers, chills. Patient has a heavy shortness of breath. Patient does wear C Pap at home but not oxygen during the day. Patient does have a history of asthma. REVIEW OF SYSTEMS: Respiratory: No cough, no dyspnea. Cardiovascular: No chest pain, no palpitations. Gastrointestinal: As noted above Musculoskeletal: As noted above Allergies: Coded Allergies: No Known Drug Allergies (Unverified , 04/24/18) Home Meds Active Scripts Tramadol Hcl (TRAMADOL HCL) 50 Mg Tablet, 1 TAB PO Q6H, #15 MG TAKE ONE TABLETS BY MOUTH EVERY SIX HOURS NEEDED Prov:RYAN SHIN DO 04/19/18 Ondansetron (ZOFRAN ODT) 4 Mg Tab.rapdis, 4 MG PO every 6 hours PRN for NAUSEA/VOMITING, #15 TAB TAKE 1 TABLET BY MOUTH EVERY 12 HOURS Prov:RYAN SHIN DO 04/19/18 Reported Medications Cholecalciferol (Vitamin D3) (VITAMIN D3) 1,000 Unit Tablet, 400 UNIT PO DAILY, TAB 04/24/18 Metoprolol Succinate (METOPROLOL SUCCINATE) 25 Mg Tab.er.24h, 0.5 TAB PO QDAY, TAB 04/19/18 Levothyroxine Sodium (LEVOTHYROXINE SODIUM) 88 Mcg Tablet, 88 MCG PO QDAY 04/19/18 Cyanocobalamin (Vitamin B-12) (VITAMIN B-12) 250 Mcg Tablet, 250 MCG PO DAILY 04/19/18 Lutein/Zeaxanthin (LUTEIN-ZEAXANTHIN 25-5 MG SFGL) 1 Each Capsule, 1 EACH PO BID, CAPSULE 12/11/17 Loratadine (LORATADINE) 10 Mg Tablet, 10 MG PO PRN 12/11/17 Zinc Gluconate (ZINC) 50 Mg Tablet, 50 MG PO QDAY 12/11/17 Rivaroxaban 20 Mg (XARELTO 20 MG) 20 Mg Tablet, 20 MG PO QDAY, TAB 12/11/17 Valsartan (DIOVAN) 80 Mg Tablet, 80 MG PO QDAY 12/11/17 Tamsulosin Hcl (TAMSULOSIN HCL) 0.4 Mg Cap.er.24h, 0.8 MG PO, CAP 12/11/17 Atorvastatin Calcium (ATORVASTATIN CALCIUM) 40 Mg Tablet, 1 TAB PO BID, TAB 12/11/17 Verapamil Hcl (VERAPAMIL ER) 180 Mg Tablet.er, 180 MG PO DAILY 02/12/16 Cetirizine Hcl (Zyrtec) 10 Mg Tab, 10 MG PO DAILY PRN for PRN 01/09/12 Aspirin (Aspirin) 81 Mg Tablet.dr, 81 MG PO BID 01/09/12 Albuterol/Ipratropium (Combivent Inhaler) 14.7 Gm Aer.w.adap, 18 MCG IH 2 PUFFS BID 01/09/12 Montelukast Sodium (Singulair) 10 Mg Tab, 10 MG PO QHS 01/09/12 Multivitamins (Multivitamin) 1 Each Capsule, 1 EACH PO 09/29/11 Discontinued Reported Medications Cholecalciferol (Vitamin D3) (VITAMIN D3) 1,000 Unit Tablet, 1000 UNIT PO DAILY, TAB 02/12/16 Metoprolol Tartrate (Metoprolol Tartrate) 37.5 Mg Tablet, 12.5 MG PO QDAY 12/11/17 Levothyroxine Sodium (LEVOTHYROXINE SODIUM) 75 Mcg Tablet, 88 MCG PO QDAY, TAB 12/11/17 Diphenhydramine Hcl (Benadryl) 25 Mg Cap, 25 MG PO HS PRN for PRN 01/09/12 Cyanocobalamin (VITAMIN B-12 (OR EQUIV)) 100 Mcg Tab, 100 MCG PO DAILY 01/09/12 Past Medical/Surgical History Patient has a past medical history of occasional A. fib, hypertension, hyperlipidemia, chronic bronchitis, asthma, emphysema, pneumonia, COPD, hepatitis, prostate cancer, bilateral cataracts, rare alcohol use Patient has a surgical history of cataract surgery, tonsillectomy, left knee surgery, hip repair, prostate seeding, cardiac bypass, aortic valve replacement. Patient has a family medical history of cancer, CAD. Reviewed Nurses Notes: Yes Hx Smoking: No (quit 1965 x 15 yrs ) Smoking Status: Former Smoker Hx Substance Use Disorder: No Hx Alcohol Use: Yes (RARE) Constitutional Vital Sign - Last 24 Hours 04/24/18 04/24/18 04/24/18 04/24/18 10:53 10:58 11:00 11:08 Temp 98.3 Pulse ??? 60 52 Resp 16 B/P (MAP) 99/52 99/52 (68) Pulse Ox 86 96 O2 Delivery Room Air 04/24/18 04/24/18 04/24/18 04/24/18 11:23 11:24 11:38 11:53 Pulse 52 54 ??? B/P (MAP) 100/38 (58) Pulse Ox 96 96 04/24/18 04/24/18 04/24/18 04/24/18 12:08 12:23 12:28 12:36 Pulse 56 52 B/P (MAP) 119/51 (73) Pulse Ox 96 95 O2 Flow Rate 2.0 04/24/18 04/24/18 04/24/18 04/24/18 12:38 12:43 12:58 13:00 Pulse 53 54 ??? B/P (MAP) ???/??? (3745) Pulse Ox 95 93 04/24/18 04/24/18 04/24/18 04/24/18 13:08 13:11 13:13 13:28 Pulse 60 58 B/P (MAP) 132/70 (90) 131/52 (78) Pulse Ox 97 97 04/24/18 04/24/18 04/24/18 04/24/18 13:30 13:43 13:58 14:00 Pulse 58 59 B/P (MAP) 118/54 (75) 109/42 (64) Pulse Ox 98 97 04/24/18 04/24/18 04/24/18 04/24/18 14:13 14:28 14:30 14:35 Pulse 62 57 ??? B/P (MAP) 114/53 (73) Pulse Ox 97 96 04/24/18 04/24/18 14:50 15:00 Pulse ??? B/P (MAP) 119/44 (69) Physical Exam General Appearance: The patient is alert, has no immediate need for airway protection and no current signs of toxicity. Respiratory: Chest is non tender, lungs are clear to auscultation. Cardiac: regular rate and rhythm Gastrointestinal: Abdomen is soft and non tender, no masses, bowel sounds normal. Musculoskeletal: Neck: Neck is supple and non tender. Extremities have full range of motion and are non tender. Patient does have tenderness to the right scapula. He does have significant bruising to the low back and the right gluteus. Skin: No rashes or lesions. DIFFERENTIAL DIAGNOSIS: After history and physical exam differential diagnosis was considered for orthostatic hypotension, dehydration, pneumonia. Medical Decision Making Data Points Result Diagram: 04/24/18 1128 04/24/18 1128 Laboratory Hematology Test 04/24/18 11:28 04/24/18 13:52 04/24/18 14:11 Red Blood Count 2.62 M/uL (4.00-5.60) Mean Corpuscular Volume 91.7 fL (80.0-96.0) Mean Corpuscular Hemoglobin 30.4 pg (26.0-33.0) Mean Corpuscular Hemoglobin Concent 33.2 g/dL (32.0-36.0) Red Cell Distribution Width 14.5 % (11.5-14.5) Mean Platelet Volume 7.9 fL (7.2-11.1) Neutrophils (%) (Auto) 74.5 % (39.4-72.5) Lymphocytes (%) (Auto) 14.6 % (17.6-49.6) Monocytes (%) (Auto) 8.5 % (4.1-12.4) Eosinophils (%) (Auto) 1.3 % (0.4-6.7) Basophils (%) (Auto) 1.1 % (0.3-1.4) Nucleated RBC Relative Count (auto) 0.1 /100WBC Neutrophils # (Auto) 6.9 K/uL (2.0-7.4) Lymphocytes # (Auto) 1.4 K/uL (1.3-3.6) Monocytes # (Auto) 0.8 K/uL (0.3-1.0) Eosinophils # (Auto) 0.1 K/uL (0.0-0.5) Basophils # (Auto) 0.1 K/uL (0.0-0.1) Nucleated RBC Absolute Count (auto) 0.01 K/uL Prothrombin Time 13.8 seconds (12.0-14.4) Prothromb Time International Ratio 1.06 Activated Partial Thromboplast Time 31 seconds (23-35) Sodium Level 136 mmol/L (137-145) Potassium Level 4.1 mmol/L (3.5-5.0) Chloride Level 102 mmol/L (98-107) Carbon Dioxide Level 27 mmol/L (22-30) Blood Urea Nitrogen 25 mg/dl (9-21) Creatinine 0.80 mg/dl (0.66-1.25) Glomerular Filtration Rate Calc > 60.0 Random Glucose 123 mg/dl (75-110) Calcium Level 8.8 mg/dl (8.4-10.2) Total Bilirubin 2.0 mg/dl (0.2-1.3) Aspartate Amino Transf (AST/SGOT) 38 U/L (0-35) Alanine Aminotransferase (ALT/SGPT) 57 U/L (0-56) Alkaline Phosphatase 58 U/L (0-126) Total Protein 5.8 g/dl (6.3-8.2) Albumin 3.3 g/dl (3.5-5.0) Total Creatine Kinase 289 U/L (55-170) Troponin I 0.026 ng/ml Urine Color Yellow Urine Clarity Clear Urine pH 5.0 pH (4.8-9.5) Urine Specific Stephen 1.059 Urine Protein Negative mg/dL (NEGATIVE) Urine Glucose (UA) Negative mg/dL (NEGATIVE) Urine Ketones Negative mg/dL (NEGATIVE) Urine Blood Negative (NEGATIVE) Urine Nitrite Negative (NEGATIVE) Urine Bilirubin Negative (NEGATIVE) Urine Urobilinogen 4.0 mg/dL (0.2-1.9) Urine Leukocyte Esterase Negative (NEGATIVE) Urine RBC None /HPF (0-2/HPF) Urine WBC 2 /HPF (0-5/HPF) Urine Squamous Epithelial Cells Few /LPF (</=FEW) Urine Bacteria Negative /HPF (NONE-FEW) Urine Mucus Few /HPF (NONE-FEW) Chemistry Test 9/29/18 11:28 04/24/18 13:52 04/24/18 14:11 White Blood Count 9.2 k/uL (4.5-11.0) Red Blood Count 2.62 M/uL (4.00-5.60) Hemoglobin 8.0 g/dL (14.0-18.0) Hematocrit 24.0 % (42.0-52.0) Mean Corpuscular Volume 91.7 fL (80.0-96.0) Mean Corpuscular Hemoglobin 30.4 pg (26.0-33.0) Mean Corpuscular Hemoglobin Concent 33.2 g/dL (32.0-36.0) Red Cell Distribution Width 14.5 % (11.5-14.5) Platelet Count 172 K/uL (150-450) Mean Platelet Volume 7.9 fL (7.2-11.1) Neutrophils (%) (Auto) 74.5 % (39.4-72.5) Lymphocytes (%) (Auto) 14.6 % (17.6-49.6) Monocytes (%) (Auto) 8.5 % (4.1-12.4) Eosinophils (%) (Auto) 1.3 % (0.4-6.7) Basophils (%) (Auto) 1.1 % (0.3-1.4) Nucleated RBC Relative Count (auto) 0.1 /100WBC Neutrophils # (Auto) 6.9 K/uL (2.0-7.4) Lymphocytes # (Auto) 1.4 K/uL (1.3-3.6) Monocytes # (Auto) 0.8 K/uL (0.3-1.0) Eosinophils # (Auto) 0.1 K/uL (0.0-0.5) Basophils # (Auto) 0.1 K/uL (0.0-0.1) Nucleated RBC Absolute Count (auto) 0.01 K/uL Prothrombin Time 13.8 seconds (12.0-14.4) Prothromb Time International Ratio 1.06 Activated Partial Thromboplast Time 31 seconds (23-35) Glomerular Filtration Rate Calc > 60.0 Calcium Level 8.8 mg/dl (8.4-10.2) Total Bilirubin 2.0 mg/dl (0.2-1.3) Aspartate Amino Transf (AST/SGOT) 38 U/L (0-35) Alanine Aminotransferase (ALT/SGPT) 57 U/L (0-56) Alkaline Phosphatase 58 U/L (0-126) Total Protein 5.8 g/dl (6.3-8.2) Albumin 3.3 g/dl (3.5-5.0) Total Creatine Kinase 289 U/L (55-170) Troponin I 0.026 ng/ml Urine Color Yellow Urine Clarity Clear Urine pH 5.0 pH (4.8-9.5) Urine Specific Stephen 1.059 Urine Protein Negative mg/dL (NEGATIVE) Urine Glucose (UA) Negative mg/dL (NEGATIVE) Urine Ketones Negative mg/dL (NEGATIVE) Urine Blood Negative (NEGATIVE) Urine Nitrite Negative (NEGATIVE) Urine Bilirubin Negative (NEGATIVE) Urine Urobilinogen 4.0 mg/dL (0.2-1.9) Urine Leukocyte Esterase Negative (NEGATIVE) Urine RBC None /HPF (0-2/HPF) Urine WBC 2 /HPF (0-5/HPF) Urine Squamous Epithelial Cells Few /LPF (</=FEW) Urine Bacteria Negative /HPF (NONE-FEW) Urine Mucus Few /HPF (NONE-FEW) Coagulation Test 04/24/18 11:28 Prothrombin Time 13.8 seconds Prothromb Time International Ratio 1.06 Activated Partial Thromboplast Time 31 seconds Urinalysis Test 04/24/18 14:11 Urine Color Yellow Urine Clarity Clear Urine pH 5.0 pH (4.8-9.5) Urine Specific Stephen 1.059 Urine Protein Negative mg/dL (NEGATIVE) Urine Glucose (UA) Negative mg/dL (NEGATIVE) Urine Ketones Negative mg/dL (NEGATIVE) Urine Blood Negative (NEGATIVE) Urine Nitrite Negative (NEGATIVE) Urine Bilirubin Negative (NEGATIVE) Urine Urobilinogen 4.0 mg/dL (0.2-1.9) Urine Leukocyte Esterase Negative (NEGATIVE) Urine RBC None /HPF (0-2/HPF) Urine WBC 2 /HPF (0-5/HPF) Urine Squamous Epithelial Cells Few /LPF (</=FEW) Urine Bacteria Negative /HPF (NONE-FEW) Urine Mucus Few /HPF (NONE-FEW) EKG/Imaging EKG Interpretation 12 lead EKG: Rhythm: Junctional rhythm [place]: normal QRS: Incomplete right bundle branch block ST segments: normal Imaging EXAMINATION: CT chest with IV contrast CT abdomen with IV contrast CT pelvis with IV contrast HISTORY: Fall, bruising, wheezing, decreased H&H. TECHNIQUE: Spiral scan was obtained through the chest, abdomen and pelvis during injection of nonionic iodinated intravenous contrast. Sagittal and coronal reformatted images are also submitted. One of the following dose optimization techniques was utilized in the performance of this exam: Automated exposure control; adjustment of the mA and /or kV according to the patient's size; or use of an iterative reconstruction technique. Specific details can be referenced in the facility's radiology CT exam operational policy. CONTRAST: 95 mL of IV Isovue-370. COMPARISON: CT the chest and pelvis on 04/19/2018. FINDINGS: CT THORAX: Lungs / pleura: No consolidation, pleural effusion or pneumothorax. Mild postinflammatory changes seen apices. Mild scarring. No nodules or focal interstitial opacities. Airways are clear. Mediastinum / salome: No abnormal density or enlarged lymph nodes. Heart / pericardium: Normal size without pericardial effusion. Mild coronary artery calcifications. Mitral valve replacement without sequelae. Vessels: The aorta does show atherosclerotic calcific changes without aneurysm. Aortic valve replacement without sequelae. Pulmonary arteries are grossly normal. Musculoskeletal / Body wall: Bony structures show no acute fracture. No discrete or displaced rib fractures. No vertebral body compressions. Mild degenerative change seen spine. Sternotomy changes without sequelae. Chest wall shows no enlarged axillary lymph nodes or masses. CT ABDOMEN AND PELVIS: Liver / biliary: No focal abnormality or perihepatic fluid. Gallbladder and biliary system is unremarkable. Pancreas: No focal abnormality. Spleen: No focal abnormality or perisplenic fluid. Adrenal glands: Negative. Kidneys: No focal abnormality. Pelvic structures: Pelvic structures visualized within normal limits. Metallic prostate seeds are present. Bowel: Multiple diverticula in sigmoid colon without pericolonic inflammation. Colon shows no other focal normality. The appendix is normal. The small bowel shows no focal abnormality or obstruction. Stomach is decompressed and grossly normal. Peritoneum / retroperitoneum / mesenteries: No free air, free fluid, fluid collections or areas of inflammation. Vessels: Mild atherosclerotic calcific changes without aneurysm or acute abnormality. Musculoskeletal / Body wall: No acute fracture. No aggressive bony lesions. Mild degenerative change seen spine. Orthopedic screws in the posterior left acetabulum without sequelae. No significant soft tissue hematoma. Lymph node assessment: Negative. IMPRESSION: 1. No indication of acute abnormality or traumatic injury to the chest, abdomen or pelvis. 2. Sigmoid diverticulosis without radiographic indication diverticulitis. 3. Other chronic stable findings as above. Report Dictated By: Dean Wahl at 04/24/2018 1:28 PM Report E-Signed By: Dean Wahl at 04/24/2018 1:47 PM CHEST PA AND LAT HISTORY: Wheezing. Fall. Status post valve replacement. COMPARISON: Chest x-ray September 24, 2014. FINDINGS: Cardiomediastinal contours: The heart is enlarged. There is been sternotomy for CABG and aortic valve replacement. Coronary stents are noted. Lungs and pleura: There is no finding of an infiltrate, lymphadenopathy or pleural effusion. There is mild hyperinflation of the lungs. Bones/soft tissues: There are no findings of a fracture. IMPRESSION: 1. Status post sternotomy for CABG and aortic valve replacement. 2. Hyperinflation of the lungs without findings of an infiltrate. Report Dictated By: Sky Fournier MD at 04/24/2018 12:13 PM Report E-Signed By: Sky Fournier MD at 04/24/2018 12:15 PM ED Course/Re-evaluation ED Course Patient was admitted to an exam room, history and physical were obtained. Differential diagnoses were considered. On examination lungs are clear although he does have some wheezing, heart was regular, abdomen soft nontender. Patient does have diffuse bruising especially to his back, lower back and right buttock. Patient had a CT scan of the head, cervical spine, chest abdomen and pelvis earlier this week. I did not initially want to do that unless there is no indication. I checked a CBC and a CMP. His CBC showed that he was anemic, he gone from 15.7 on the 24th 28.0 today. As a result of that I did do a CT scan of the chest abdomen and pelvis looking for a active bleed. That was negative. Chest x-ray done due to the wheezing which was also negative. While patient was in CT he became very nauseated and vomited several times. We did give him some Zofran which seemed to help. However I did do a an EKG and a troponin to make sure there was not a cardiac event which precipitated the nausea and vomiting. That was also negative. I discussed the findings with Dr. dooley, general surgeon, who agreed to accept the patient for admission. Patient will be admitted to the medical floor. While he is there he will get a transfusion. Lab work will be repeated in the morning. I discussed this with the patient and his family and they verbalized understanding and agreement with plan. Decision to Disposition Date: Apr 24, 2018 Decision to Disposition Time: 15:06 Depart Departure Latest Vital Signs Vital Signs Date Time Temp Pulse Resp B/P (MAP) Pulse Ox O2 Delivery O2 Flow Rate FiO2 04/24/18 15:00 119/44 (69) 04/24/18 14:50 ??? 04/24/18 14:28 96 04/24/18 12:28 2.0 04/24/18 10:58 98.3 16 Room Air Impression: Primary Impression: Anemia Additional Impressions: Multiple contusions Fall (on) (from) other stairs and steps, sequela Condition: Condition Unchanged Disposition: Admitted from ER Referrals: KATH GARIBAY DO (PCP) Problem Qualifiers Primary Impression: Anemia Anemia type: other cause Other causes of anemia: other cause, not classified Qualified Codes: D64.89 - Other specified anemias ARMANDO COLVIN Apr 24, 2018 11:08
[2018-04-24] MEDS ORDERED: NS(*) 0.9% 500 ML BAG 500 ML IV ONE (11:25)
[2018-04-24] MEDS ORDERED: ONDANSETRON 4 MG/2 ML VIAL IVP ONE ×2 (11:25→12:55)
[2018-04-24 11:41] LABS: PLATELET COUNT, AUTOMATED 172 K/uL (150-450)
[2018-04-24 11:47] LABS: INR 1.06
--- NOTE | 2018-04-24 12:19 | RADIOLOGY IMAGING REPORT ---
FACILITY: [facility] [place] PATIENT NAME: Jona Lara : 1935 MR: [id number] V: [id number] EXAM DATE: ORDERING PHYSICIAN: ARMANDO COLVIN TECHNOLOGIST: Location: [facility] Patient: Jona Lara : 1935 Visit/Account:[id number] Date of Sevice: 04/24/2018 CHEST PA AND LAT HISTORY: Wheezing. Fall. Status post valve replacement. COMPARISON: Chest x-ray September 24, 2014. FINDINGS: Cardiomediastinal contours: The heart is enlarged. There is been sternotomy for CABG and aortic valve replacement. Coronary stents are noted. Lungs and pleura: There is no finding of an infiltrate, lymphadenopathy or pleural effusion. There is mild hyperinflation of the lungs. Bones/soft tissues: There are no findings of a fracture. IMPRESSION: 1. Status post sternotomy for CABG and aortic valve replacement. 2. Hyperinflation of the lungs without findings of an infiltrate. Report Dictated By: Sky Fournier MD at 04/24/2018 12:13 PM Report E-Signed By: Sky Fournier MD at 04/24/2018 12:15 PM WSN:[id number]
[2018-04-24] MEDS ORDERED: IOPAMIDOL 76% 100 ML INFUS BTL 100 ML ONE (12:23)
--- NOTE | 2018-04-24 13:51 | RADIOLOGY IMAGING REPORT ---
FACILITY: [facility] [place] PATIENT NAME: Jona Lara : 1935 MR: [id number] V: [id number] EXAM DATE: ORDERING PHYSICIAN: ARMANDO COLVIN TECHNOLOGIST: [place] [facility] [place] Jona Lara : 1935 Visit/Account:[id number] Date of Sevice: 04/24/2018 EXAMINATION: CT chest with IV contrast CT abdomen with IV contrast CT pelvis with IV contrast HISTORY: Fall, bruising, wheezing, decreased H&H. TECHNIQUE: Spiral scan was obtained through the chest, abdomen and pelvis during injection of nonio lian iodinated intravenous contrast. Sagittal and coronal reformatted images are also submitted. One of the following dose optimization techniques was utilized in the performance of this exam: Autom ated exposure control; adjustment of the mA and/or kV according to the patient's size; or use of an i terative reconstruction technique. Specific details can be referenced in the facility's radiology C T exam operational policy. CONTRAST: 95 mL of IV Isovue-370. COMPARISON: CT the chest and pelvis on 04/19/2018. FINDINGS: CT THORAX: Lungs / pleura: No consolidation, pleural effusion or pneumothorax. Mild postinflammatory changes se en apices. Mild scarring. No nodules or focal interstitial opacities. Airways are clear. Mediastinum / salome: No abnormal density or enlarged lymph nodes. Heart / pericardium: Normal size without pericardial effusion. Mild coronary artery calcifications. Mitral valve replacement without sequelae. Vessels: The aorta does show atherosclerotic calcific changes without aneurysm. Aortic valve replace ment without sequelae. Pulmonary arteries are grossly normal. Musculoskeletal / Body wall: Bony structures show no acute fracture. No discrete or displaced rib fr actures. No vertebral body compressions. Mild degenerative change seen spine. Sternotomy changes with out sequelae. Chest wall shows no enlarged axillary lymph nodes or masses. CT ABDOMEN AND PELVIS: Liver / biliary: No focal abnormality or perihepatic fluid. Gallbladder and biliary system is unremar kable. Pancreas: No focal abnormality. Spleen: No focal abnormality or perisplenic fluid. Adrenal glands: Negative. Kidneys: No focal abnormality. Pelvic structures: Pelvic structures visualized within normal limits. Metallic prostate seeds are present. Bowel: Multiple diverticula in sigmoid colon without pericolonic inflammation. Colon shows no other f ocal normality. The appendix is normal. The small bowel shows no focal abnormality or obstruction. St omach is decompressed and grossly normal. Peritoneum / retroperitoneum / mesenteries: No free air, free fluid, fluid collections or areas of in flammation. Vessels: Mild atherosclerotic calcific changes without aneurysm or acute abnormality. Musculoskeletal / Body wall: No acute fracture. No aggressive bony lesions. Mild degenerative change seen spine. Orthopedic screws in the posterior left acetabulum without sequelae. No significant soft tissue hematoma. Lymph node assessment: Negative. IMPRESSION: 1. No indication of acute abnormality or traumatic injury to the chest, abdomen or pelvis. 2. Sigmoid diverticulosis without radiographic indication diverticulitis. 3. Other chronic stable findings as above. Report Dictated By: Dean Wahl at 04/24/2018 1:28 PM Report E-Signed By: Dean Wahl at 04/24/2018 1:47 PM WSN:[id number]
[2018-04-24] MEDS ORDERED: PROMETHAZINE 25 MG/ML 1 ML AMP IVP PRN (16:05)
[2018-04-24] MEDS ORDERED: APAP/HYDROCODONE 325/5 TAB PO PRN (16:05)
[2018-04-24] MEDS ORDERED: LR(*) 1000 ML BAG 1,000 ML IV PRN (16:10)
[2018-04-24] MEDS ORDERED: CHOL10005 PO (16:11)
--- NOTE | 2018-04-24 16:11 | EKG ---
FACILITY: [facility] PATIENT NAME: KARTIK ROBERTS : [id number] MR: [id number] V: [id number] EXAM DATE: ORDERING PHYSICIAN: ARMANDO COLVIN TECHNOLOGIST: Test Reason : NAUSEA, VOMITING Blood Pressure : / mmHG Vent. Rate : 060 BPM Atrial Rate : 234 BPM P-R Int : 208 ms QRS Dur : 098 ms QT Int : 434 ms P-R-T Axes : 238 073 088 degrees QTc Int : 434 ms Junctional rhythm Incomplete right bundle branch block Abnormal ECG When compared with ECG of 24-SEP-2014 07:48, Junctional rhythm has replaced Sinus rhythm Incomplete right bundle branch block is now present Confirmed by KARTIK BROWN ([id number]) on 04/24/2018 7:55:11 PM Referred By: Confirmed By:KARTIK BROWN
[2018-04-24] MEDS ORDERED: NS(*) 0.9% 500 ML BAG 500 ML ONE (16:26)
[2018-04-24] MEDS: ONDANSETRON 4 MG/2 ML VIAL IVP PRN (16:50)
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
[2018-04-25] MEDS ORDERED: LR(*) 1000 ML BAG 1,000 ML IV PRN (01:43)
[2018-04-25 02:42] VITALS: BP 148/63
[2018-04-25] MEDS: ONDANSETRON 4 MG/2 ML VIAL IVP PRN ×2 (07:41→15:48)
[2018-04-25 07:47] VITALS: BP 146/62
[2018-04-25 11:13] LABS: PLATELET COUNT, AUTOMATED 175 K/uL (150-450)
[2018-04-25 11:37] VITALS: BP 138/59
[2018-04-25] MEDS ORDERED: CETIRIZINE HCL 10 MG TAB PO PRN (12:50)
[2018-04-25] MEDS: COMBIVENT 4 GR INHALER IH SCH ×2 (14:01→18:16)
[2018-04-25 14:32] VITALS: Ht 180.3 cm; Wt 91.6 kg
[2018-04-25 15:40] VITALS: BP 159/65
--- NOTE | 2018-04-25 16:56 | RADIOLOGY IMAGING REPORT ---
FACILITY: [facility] [place] PATIENT NAME: Jona Lara : 1935 MR: [id number] V: [id number] EXAM DATE: ORDERING PHYSICIAN: DELORIS ALAN TECHNOLOGIST: Location: [facility] [place] Patient: Jona Lara : 1935 Visit/Account:[id number] Date of Sevice: 04/25/[address] scan without contrast COMPARISONS: Head CT scan without contrast dated April 19, 2018 ADDITIONAL PERTINENT HISTORY: Head trauma with increasing symptoms TECHNIQUE: Multiple axial images were obtained from the skull base to the vertex without IV contrast . One of the following dose optimization techniques was utilized in the performance of this exam: Aut omated exposure control; adjustment of the mA and/or kV according to the patient's size; or use of an iterative reconstruction technique. Specific details can be referenced in the facility's radiology CT exam operational policy. FINDINGS: Midline shift: Negative Ventricles: Mild enlargement of the lateral and third ventricles. Otherwise negative Brain parenchyma: Patchy hypoattenuation within the periventricular and subcortical white matter, no nspecific but likely representing small vessel ischemic change on a chronic basis. No intraparenchyma l hemorrhage or mass effect. Extra-axial spaces: Moderate cerebral atrophy. Intracranial vasculature: Cavernous internal carotid and distal vertebral artery calcifications. Oth erwise negative Osseous structures: Negative Paranasal sinuses and mastoid air cells: Minimal mucosal thickening involving both maxillary sinuses . Surrounding soft tissues and orbits: Negative IMPRESSION: Report Dictated By: Vaughn Paris MD at 04/25/2018 4:49 PM Report E-Signed By: Vaughn Paris MD at 04/25/2018 4:53 PM WSN:[id number]
--- NOTE | 2018-04-25 17:19 | Hospitalist Consultation ---
History of Present Illness Requesting Physician Dr. Day Reason for Consult Manage medical problems. Chief Complaint Fall with head injury on Thursday, April 19. Persistent dizziness and nausea. History of Present Illness The patient is an 83 year old gentleman with PMH significant for CAD and atrial fib on chronic anticoagulation who states that he walked up the stairs from his basement last Thursday. When he reached the top step, his R leg gave out and he fell backwards, tumbling down the stairs. He was taken to the ER by EMS. He underwent CTs of the head, chest/abdomen/pelvis and c-spine. All were negative. He was discharged to home and over the next several days continued to have dizziness, nausea and headache. His symptoms did not improve and may have worsened. On April 24, he presented again to [facility] ER for evaluation. Repeat studies of the abdomen and pelvis were performed and were once again negative. A CT of the head was not repeated at that time. His hemoglobin was noted to be low. The patient states his R leg gives out on him occasionally without warning. He has not other symptoms with this. The patient's daughter notes that he has had some mild memory loss but his memory has worsened since the injury on Thursday. She has also noticed some slurring of his speech.The patient was admitted for further evaluation and treatment. He was transfused 2 u of PRBCs. His headache and dizziness have persisted. History Problems: (1) Hx of aortic valve replacement with porcine valve Status: Chronic (2) History of hepatitis A Status: Resolved (3) PATRICIA on CPAP Status: Chronic (4) Asthma Status: Chronic (5) HTN (hypertension) Status: Chronic (6) CAD (coronary artery disease) Status: Chronic Comment: One stent placed. (7) Hyperlipidemia Status: Chronic (8) Macular degeneration Status: Chronic (9) S/P ablation of atrial fibrillation Status: Resolved (10) History of atrial fibrillation Status: Chronic (11) Prostate CA Status: Chronic (12) Hx of tonsillectomy Status: Resolved (13) H/O bilateral cataract extraction Status: Resolved (14) Hx of CABG Status: Resolved Home Meds Active Scripts Tramadol Hcl (TRAMADOL HCL) 50 Mg Tablet, 1 TAB PO Q6H, #15 MG TAKE ONE TABLETS BY MOUTH EVERY SIX HOURS NEEDED Prov:RYAN SHIN DO 04/19/18 Ondansetron (ZOFRAN ODT) 4 Mg Tab.rapdis, 4 MG PO every 6 hours PRN for NAUSEA/VOMITING, #15 TAB TAKE 1 TABLET BY MOUTH EVERY 12 HOURS Prov:RYAN SHIN DO 04/19/18 Reported Medications Metoprolol Tartrate (METOPROLOL TARTRATE) 25 Mg Tablet, 0.5 TAB PO BID, TAB 04/25/18 Cholecalciferol (Vitamin D3) (VITAMIN D3) 1,000 Unit Tablet, 400 UNIT PO DAILY, TAB 04/24/18 Levothyroxine Sodium (LEVOTHYROXINE SODIUM) 88 Mcg Tablet, 88 MCG PO QDAY 04/19/18 Cyanocobalamin (Vitamin B-12) (VITAMIN B-12) 250 Mcg Tablet, 250 MCG PO DAILY 04/19/18 Lutein/Zeaxanthin (LUTEIN-ZEAXANTHIN 25-5 MG SFGL) 1 Each Capsule, 1 EACH PO BID, CAPSULE 12/11/17 Loratadine (LORATADINE) 10 Mg Tablet, 10 MG PO PRN 12/11/17 Zinc Gluconate (ZINC) 50 Mg Tablet, 50 MG PO QDAY 12/11/17 Rivaroxaban 20 Mg (XARELTO 20 MG) 20 Mg Tablet, 20 MG PO QDAY, TAB 12/11/17 Valsartan (DIOVAN) 80 Mg Tablet, 80 MG PO QDAY 12/11/17 Tamsulosin Hcl (TAMSULOSIN HCL) 0.4 Mg Cap.er.24h, 0.8 MG PO, CAP 12/11/17 Atorvastatin Calcium (ATORVASTATIN CALCIUM) 40 Mg Tablet, 1 TAB PO BID, TAB 12/11/17 Verapamil Hcl (VERAPAMIL ER) 180 Mg Tablet.er, 180 MG PO DAILY 02/12/16 Cetirizine Hcl (Zyrtec) 10 Mg Tab, 10 MG PO DAILY PRN for PRN 01/09/12 Aspirin (Aspirin) 81 Mg Tablet.dr, 81 MG PO BID 01/09/12 Albuterol/Ipratropium (Combivent Inhaler) 14.7 Gm Aer.w.adap, 18 MCG IH 2 PUFFS BID 01/09/12 Montelukast Sodium (Singulair) 10 Mg Tab, 10 MG PO QHS 01/09/12 Multivitamins (Multivitamin) 1 Each Capsule, 1 EACH PO 09/29/11 Discontinued Reported Medications Metoprolol Succinate (METOPROLOL SUCCINATE) 25 Mg Tab.er.24h, 0.5 TAB PO QDAY, TAB 04/19/18 Cholecalciferol (Vitamin D3) (VITAMIN D3) 1,000 Unit Tablet, 1000 UNIT PO DAILY, TAB 02/12/16 Metoprolol Tartrate (Metoprolol Tartrate) 37.5 Mg Tablet, 12.5 MG PO QDAY 12/11/17 Levothyroxine Sodium (LEVOTHYROXINE SODIUM) 75 Mcg Tablet, 88 MCG PO QDAY, TAB 12/11/17 Diphenhydramine Hcl (Benadryl) 25 Mg Cap, 25 MG PO HS PRN for PRN 01/09/12 Cyanocobalamin (VITAMIN B-12 (OR EQUIV)) 100 Mcg Tab, 100 MCG PO DAILY 01/09/12 Allergies: Coded Allergies: No Known Drug Allergies (Unverified , 04/24/18) Patient History: FH: CAD (coronary artery disease) FATHER FH: cancer of genital organ MOTHER FH: congestive heart failure FATHER Other Social/Family Hx The patient lives in [place] with his . He quit smoking in 1964. He drinks about 1/2 alcoholic beverage per week. He is retired. Hx Smoking: Yes Smoking Status: Former Smoker (Quit in 1964. Smoked for 15 years.) Caffeine Intake: Coffee, Tea Caffeine/Cups Per Day: 8-12 cpd Hx Alcohol Use: Yes (0.5 drinks/week) Alcohol Use: Occassional Hx Substance Use Disorder: No Social Drug Use: Never Review of Systems All Systems Reviewed/Normal: Yes, Except as Noted Constitutional: No Fever Neurological: Dizziness, Slurred Speech, Other (Headache.) Eyes: Other (Cataract surgeries in the past.) Cardiovascular: No Chest Pain Respiratory: No Shortness of Breath Gastrointestinal: Nausea Musculoskeletal: Pain (All over due to bruising from fall.) Exam Vital Signs Vital Signs Date Time Temp Pulse Resp B/P (MAP) Pulse Ox O2 Delivery O2 Flow Rate FiO2 04/25/18 15:40 99.0 66 16 159/65 (96) 94 Nasal Cannula 0.5 General Appearance: Alert, Awake, No Acute Distress, Afebrile Neuro: Other (Some difficulty remembering the date. Otherwise oriented.) Eyes: PERRLA ENT: Other (Bruising over forehead.) Cardiovascular: Regular Rate and Rhythm (With loud MESERET heard best at RUSB.), No Edema Respiratory: Clear to Auscultation GI: Abd Soft and Non-Tender Extremities: Warm, Perfused, Other (No edema.) Integumentary: Other (Skin over R back and buttock completely dark purple from ecchymosis. R arm completely purple due to ecchymosis as well.) Psych: Appropriate Mood & Affect Medical Decision Making Data Points Result Diagram: 04/25/18 1104 04/24/18 1128 Item Value Date Time Troponin I 0.026 ng/ml 04/24/18 1352 Total Bilirubin 2.0 mg/dl H 04/24/18 1128 Alanine Aminotransferase (ALT/SGPT) 57 U/L H 04/24/18 1128 Aspartate Amino Transf (AST/SGOT) 38 U/L H 04/24/18 1128 Alkaline Phosphatase 58 U/L 04/24/18 1128 Total Protein 5.8 g/dl L 04/24/18 1128 Albumin 3.3 g/dl L 04/24/18 1128 Total Creatine Kinase 289 U/L H 04/24/18 1352 EKG / Imaging EKG Interpretation FACILITY: [facility] PATIENT NAME: KARTIK ROBERTS : [id number] MR: [id number] V: [id number] EXAM DATE: ORDERING PHYSICIAN: ARMANDO COLVIN TECHNOLOGIST: Test Reason : NAUSEA, VOMITING Blood Pressure : / mmHG Vent. Rate : 060 BPM Atrial Rate : 234 BPM P-R Int : 208 ms QRS Dur : 098 ms QT Int : 434 ms P-R-T Axes : 238 073 088 degrees QTc Int : 434 ms Junctional rhythm Incomplete right bundle branch block Abnormal ECG When compared with ECG of 24-SEP-2014 07:48, Junctional rhythm has replaced Sinus rhythm Incomplete right bundle branch block is now present Confirmed by KARTIK BROWN ([id number]) on 04/24/2018 7:55:11 PM Referred By: Confirmed By:KARTIK BROWN [id number] T: NATALIIA/ Imaging FACILITY: [facility] PATIENT NAME: Kartik Roberts : 1935 MR: [id number] V: [id number] EXAM DATE: [id number] ORDERING PHYSICIAN: ARMANDO COLVIN TECHNOLOGIST: Location: [facility] Patient: Kartik Roberts : 1935 Visit/Account:[id number] Date of Sevice: 04/24/2018 CHEST PA AND LAT HISTORY: Wheezing. Fall. Status post valve replacement. COMPARISON: Chest x-ray September 24, 2014. FINDINGS: Cardiomediastinal contours: The heart is enlarged. There is been sternotomy for CABG and aortic valve replacement. Coronary stents are noted. Lungs and pleura: There is no finding of an infiltrate, lymphadenopathy or pleural effusion. There is mild hyperinflation of the lungs. Bones/soft tissues: There are no findings of a fracture. IMPRESSION: 1. Status post sternotomy for CABG and aortic valve replacement. 2. Hyperinflation of the lungs without findings of an infiltrate. Report Dictated By: Sky Fournier MD at 04/24/2018 12:13 PM Report E-Signed By: Sky Fournier MD at 04/24/2018 12:15 PM WSN:[id number] Pre-Admit Course Medical Record Review: Yes Assessment and Plan Problems: (1) Fall (on) (from) other stairs and steps, sequela Status: Acute Assessment & Plan: With head trauma. Continued dizziness and nausea. Will repeat CT brain today. (2) Traumatic hematoma of lower back Status: Acute Assessment & Plan: Bruising over most of R back and buttock. Surgery monitoring. (3) Hematoma of arm Status: Acute Assessment & Plan: Surgery monitoring. (4) Post concussive syndrome Status: Acute Assessment & Plan: Continued dizziness and nausea likely due to postconcussive syndrome. Repeat CT brain to rule out delayed intracranial bleeding. Patient fully anticoagulated at the time of the fall. (5) PATRICIA on CPAP Status: Chronic Assessment & Plan: Continue CPAP. (6) HTN (hypertension) Status: Chronic Assessment & Plan: Restart metoprolol. (7) Asthma Status: Chronic Assessment & Plan: Continue Combivent and Singulair. Continue antihistamine. (8) Hyperlipidemia Status: Chronic Assessment & Plan: Continue atorvastatin 40mg bid. (9) CAD (coronary artery disease) Status: Chronic Assessment & Plan: Continue metoprolol. Hold ASA and Xarelto for now. (10) Anemia Status: Acute Assessment & Plan: Due to multiple hematomas. Transfused 2u PRBCs. Continue to monitor. (11) Hypothyroidism Status: Chronic Assessment & Plan: Continue levothyroxine. TSH ordered. (12) LFT elevation Status: Acute Assessment & Plan: Mild. Likely due to trauma. Monitor. Time Spent on Plan of Care: < 30 min Venous Thromboembolism Antithrombotics Is Pt On Any Antithrombotics?: No (Holding due to trauma) Exam Sepsis Risk: No Definite Risk Problem Qualifiers (1) Anemia: Anemia type: other cause Other causes of anemia: other cause, not classified Qualified Codes: D64.89 - Other specified anemias DELORIS ALAN MD Apr 25, 2018 17:19
[2018-04-25] MEDS ORDERED: METO25TA93 PO (17:33)
[2018-04-25] MEDS ORDERED: METO-253 PO (18:47)
[2018-04-25] MEDS ORDERED: METOPROLOL SUCC XL 25 MG TABCR PO SCH (21:00)
[2018-04-25] MEDS ORDERED: MONTELUKAST SODIUM 10 MG TAB PO SCH (21:00)
[2018-04-25] MEDS ORDERED: METOPROLOL TART 50 MG TAB PO SCH (21:00)
[2018-04-25 21:04] VITALS: BP 135/57
[2018-04-25] MEDS: ATORVASTATIN 40 MG TAB PO SCH (21:49)
[2018-04-25] MEDS: METOPROLOL TART 50 MG TAB PO SCH (21:50)
[2018-04-25] MEDS ORDERED: TAMSULOSIN HCL 0.4 MG CAP PO SCH ×2 (22:54→23:35)
[2018-04-25 23:35] VITALS: BP 140/65
[2018-04-26 03:46] VITALS: BP 128/59
[2018-04-26] MEDS: COMBIVENT 4 GR INHALER IH SCH (05:08)
[2018-04-26] MEDS ORDERED: LEVOTHYROXINE SOD 0.088 MG TAB PO SCH (06:00)
[2018-04-26 06:06] LABS: PLATELET COUNT, AUTOMATED 176 K/uL (150-450)
[2018-04-26 08:15] VITALS: BP 142/56
--- NOTE | 2018-04-26 08:15 | General Surgery Progress Note ---
Subjective Progress Notes Subjective Feeling much better today. Denies N/V. No lightheadedness. Has not walked since admit. Physical Exam Vital Signs Date Time Temp Pulse Resp B/P (MAP) Pulse Ox O2 Delivery O2 Flow Rate FiO2 04/26/18 05:11 76 14 04/26/18 03:46 99.4 128/59 (82) 91 Nasal Cannula 1.0 Intake and Output 04/26/18 07:00 Intake Total 1213 ml Output Total 1375 ml Balance -162 ml Intake Oral 370 ml IV Total 843 ml Output Urine Total 1375 ml General Appearance: Alert, Awake, No Acute Distress Neuro: No Gross deficits ENT: Normal Cardiovascular: Normal Rhythm & Peripheral Pulses, Other (Holosystolic murmur appreciated) Respiratory: No Respiratory Distress, Clear to Auscultation GI: Soft and Non-Tender Musculoskeletal: No Weakness/Pain Extremities: Soft and Non Tender, Other (Extensive bruising on RUE, back, right flank, and right hip. ) Integumentary: Skin Intact without Lesion / Mass Psych: Alert & Oriented X3, Appropriate Mood & Affect Result Diagram: 04/26/1835 04/26/18534 Assessment and Plan Problems: (1) Traumatic hematoma of lower back Status: Acute (2) Hematoma of arm Status: Acute (3) Fall (on) (from) other stairs and steps, sequela Status: Acute Assessment & Plan: 04/26/2018: Feeling much better today. H&H stable after transfusion. Hyperbilirubinemia not unexpected with breakdown of multiple soft tissue hematomas. Will ambulate patient with nursing and determine need for PT/OT evaluation. If tolerating PO, ambulating well, may be appropriate for discharge with f/u this week with PCP. Exam Sepsis Risk: No Definite Risk ALBERTO SERRATO MD Apr 26, 2018 08:15
[2018-04-26] MEDS ORDERED: RIVAROXABAN 10 MG TAB PO ONE (08:50)
[2018-04-26 09:00] VITALS: BP 137/50
[2018-04-26] MEDS ORDERED: CYANOCOBALAMIN 1000 MCG TAB PO SCH (09:00)
[2018-04-26] MEDS ORDERED: CHOLECALCIFEROL 400 INTLU TAB 400 INTLU TAB PO SCH (09:00)
[2018-04-26] MEDS ORDERED: BETA-CAROTENE(A) & E/MIN TAB PO SCH (09:00)
[2018-04-26] MEDS ORDERED: TAMSULOSIN HCL 0.4 MG CAP PO SCH ×2 (09:00→21:00)
[2018-04-26] MEDS: METOPROLOL TART 50 MG TAB PO SCH (09:13)
[2018-04-26] MEDS: ATORVASTATIN 40 MG TAB PO SCH (09:13)
[2018-04-26] MEDS ORDERED: ALBUTEROL 8 GM INHALER INH PRN (09:35)
[2018-04-26] MEDS ORDERED: COMBIVENT 4 GR INHALER IH PRN (09:40)
--- NOTE | 2018-04-26 11:18 | Hospitalist Progress Note ---
Subjective Progress Notes Subjective He has no complaints this morning. He had no acute events overnight. Patient Complains of: Cardiovascular: No: Chest Pain Respiratory: No: Shortness of Breath Physical Exam Vital Signs Date Time Temp Pulse Resp B/P (MAP) Pulse Ox O2 Delivery O2 Flow Rate FiO2 04/26/18 09:04 88 Nasal Cannula 1.0 04/26/18 09:00 98.9 18 137/50 (79) 04/26/18 08:15 69 Intake and Output 04/26/18 01:00 Intake Total 963 ml Output Total 1300 ml Balance -337 ml Intake Oral 120 ml IV Total 843 ml Output Urine Total 1300 ml General Appearance: Alert, Awake, No Acute Distress, Afebrile Neuro: No Gross deficits Cardiovascular: Regular Rate and Rhythm (with murmur) Respiratory: No Respiratory Distress, Clear to Auscultation GI: Soft and Non-Tender Extremities: Warm, Perfused; No Edema Integumentary: Other (bruised throughout back arms and body) Psych: Alert & Oriented X3, Appropriate Mood & Affect Result Diagram: 04/26/18 0535 04/26/18 0535 Assessment and Plan Problems: (1) Fall (on) (from) other stairs and steps, initial encounter Status: Acute Assessment & Plan: With head trauma. Had dizziness and nausea, which is improving. Head CT upon admission was negative for acute injury. (2) Traumatic hematoma of lower back Status: Acute Assessment & Plan: Bruising over most of R back and buttock. Surgery monitoring. (3) Hematoma of arm Status: Acute Assessment & Plan: Surgery monitoring. (4) Post concussive syndrome Status: Acute Assessment & Plan: He had dizziness and nausea upon admission likely due to postconcussive syndrome. Repeat CT brain was negative to rule out delayed intracranial bleeding. Patient fully anticoagulated at the time of the fall. (5) PATRICIA on CPAP Status: Chronic Assessment & Plan: Continue CPAP. (6) Asthma Status: Chronic Assessment & Plan: Continue Combivent and Singulair. Continue antihistamine. (7) HTN (hypertension) Status: Chronic Assessment & Plan: He is on chronic treatment with metoprolol. (8) CAD (coronary artery disease) Status: Chronic Assessment & Plan: Continue metoprolol. ASA and Xarelto restarted per surgery. (9) Hyperlipidemia Status: Chronic Assessment & Plan: Continue atorvastatin 40mg bid. (10) Anemia Status: Acute Assessment & Plan: Due to multiple hematomas. Transfused 2u PRBCs. Continue to monitor. (11) Hypothyroidism Status: Chronic Assessment & Plan: Continue levothyroxine. TSH ordered. (12) LFT elevation Status: Acute Assessment & Plan: Mild. Likely due to trauma. Monitor. 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
--- NOTE | 2018-04-27 07:51 | Short(Outpt) Discharge Summary ---
Discharge Summary Reason for Hosp/Final Diag: (1) Traumatic hematoma of lower back Status: Acute (2) Hematoma of arm Status: Acute (3) Fall (on) (from) other stairs and steps, sequela Status: Acute Hospital Course & Plan: 04/26/2018: Feeling much better today. H&H stable after transfusion. Hyperbilirubinemia not unexpected with breakdown of multiple soft tissue hematomas. Will ambulate patient with nursing and determine need for PT/OT evaluation. If tolerating PO, ambulating well, may be appropriate for discharge with f/u this week with PCP. Departure Discharge to: Home, Self Care Discharge Instructions Home Meds Active Scripts Tramadol Hcl (TRAMADOL HCL) 50 Mg Tablet, 1 TAB PO Q6H, #15 MG TAKE ONE TABLETS BY MOUTH EVERY SIX HOURS NEEDED Prov:RYAN SHIN DO 04/19/18 Ondansetron (ZOFRAN ODT) 4 Mg Tab.rapdis, 4 MG PO every 6 hours PRN for NAUSEA/VOMITING, #15 TAB TAKE 1 TABLET BY MOUTH EVERY 12 HOURS Prov:RYAN SHIN DO 04/19/18 Reported Medications Metoprolol Tartrate (METOPROLOL TARTRATE) 50 Mg Tab, 0.5 TAB PO BID, TAB 04/25/18 Cholecalciferol (Vitamin D3) (VITAMIN D3) 1,000 Unit Tablet, 400 UNIT PO DAILY, TAB 04/24/18 Levothyroxine Sodium (LEVOTHYROXINE SODIUM) 88 Mcg Tablet, 88 MCG PO QDAY 04/19/18 Cyanocobalamin (Vitamin B-12) (VITAMIN B-12) 250 Mcg Tablet, 250 MCG PO DAILY 04/19/18 Lutein/Zeaxanthin (LUTEIN-ZEAXANTHIN 25-5 MG SFGL) 1 Each Capsule, 1 EACH PO BID, CAPSULE 12/11/17 Loratadine (LORATADINE) 10 Mg Tablet, 10 MG PO PRN 12/11/17 Zinc Gluconate (ZINC) 50 Mg Tablet, 50 MG PO QDAY 12/11/17 Rivaroxaban 20 Mg (XARELTO 20 MG) 20 Mg Tablet, 20 MG PO QDAY, TAB 12/11/17 Valsartan (DIOVAN) 80 Mg Tablet, 80 MG PO QDAY 12/11/17 Tamsulosin Hcl (TAMSULOSIN HCL) 0.4 Mg Cap.er.24h, 0.8 MG PO, CAP 12/11/17 Atorvastatin Calcium (ATORVASTATIN CALCIUM) 40 Mg Tablet, 1 TAB PO BID, TAB 12/11/17 Verapamil Hcl (VERAPAMIL ER) 180 Mg Tablet.er, 180 MG PO DAILY 02/12/16 Cetirizine Hcl (Zyrtec) 10 Mg Tab, 10 MG PO DAILY PRN for PRN 01/09/12 Aspirin (Aspirin) 81 Mg Tablet.dr, 81 MG PO BID 01/09/12 Albuterol/Ipratropium (Combivent Inhaler) 14.7 Gm Aer.w.adap, 18 MCG IH 2 PUFFS BID 01/09/12 Montelukast Sodium (Singulair) 10 Mg Tab, 10 MG PO QHS 01/09/12 Multivitamins (Multivitamin) 1 Each Capsule, 1 EACH PO 09/29/11 Discontinued Reported Medications Metoprolol Tartrate (METOPROLOL TARTRATE) 25 Mg Tablet, 0.5 TAB PO BID, TAB 04/25/18 Metoprolol Succinate (METOPROLOL SUCCINATE) 25 Mg Tab.er.24h, 0.5 TAB PO QDAY, TAB 04/19/18 Cholecalciferol (Vitamin D3) (VITAMIN D3) 1,000 Unit Tablet, 1000 UNIT PO DAILY, TAB 02/12/16 Follow up Referrals: Family Practice - In One Day with KATH GARIBAY DO Diet: Regular Activity: As Tolerated Special Instructions: Continue all regular home medicaions. Follow up with Primary care proider tomorrow. Problem Qualifiers (1) Traumatic hematoma of lower back: Encounter type: initial encounter Qualified Codes: S30.0XXA - Contusion of lower back and pelvis, initial encounter (2) Hematoma of arm: Encounter type: initial encounter ALBERTO SERRATO MD Apr 27, 2018 07:51
== END 2018-04-26 14:45 | disposition home or self-care (01) | DRG 103 ==
LOC: ER 11:11 → MED 15:00
PROVIDERS: ADMIT Surgery; ATTEND Surgery
PROC: 30233N1 Transfusion of Nonautologous Red Blood Cells into Peripheral Vein, Percutaneous Approach (ICD-10-PCS; principal; 2018-04-24)
DX: F07.81 Postconcussional syndrome (principal); I48.2 Chronic atrial fibrillation; I10 Essential (primary) hypertension; D50.0 Iron deficiency anemia secondary to blood loss (chronic); S40.021A Contusion of right upper arm, initial encounter; S30.0XXA Contusion of lower back and pelvis, initial encounter; S70.11XA Contusion of right thigh, initial encounter; G47.33 Obstructive sleep apnea (adult) (pediatric); I25.10 Atherosclerotic heart disease of native coronary artery without angina pectoris; E78.5 Hyperlipidemia, unspecified; J43.9 Emphysema, unspecified; E03.9 Hypothyroidism, unspecified; R79.89 Other specified abnormal findings of blood chemistry; Z85.46 Personal history of malignant neoplasm of prostate; Z95.2 Presence of prosthetic heart valve; Z87.891 Personal history of nicotine dependence; Z95.1 Presence of aortocoronary bypass graft; W10.9XXA Fall (on) (from) unspecified stairs and steps, initial encounter; Y92.009 Unspecified place in unspecified non-institutional (private) residence as the place of occurrence of the external cause; Y99.8 Other external cause status; Z79.01 Long term (current) use of anticoagulants; Z99.81 Dependence on supplemental oxygen
CPT/HCPCS: 36415; 70450; 71046; 71260; 74177; 81001; 82040; 82247; 82310; 82374; 82435; 82550; 82565; 82947; 84075; 84132; 84155; 84295; 84443; 84450; 84460; 84484; 84520; 85025; 85027; 85610; 85730; 86850; 86900; 86901; 86920; 87088; 93005; 94640; 96361; 96374; 97161; 99285; J2405; J3535; J7040; J7120; P9016; Q9967

== ENCOUNTER → 2018-08-10 | Outpatient (CLI) | payer MEDICARE, BC ==
[2018-04-25 14:32] VITALS: BMI 28.2
[~2018-08-10] MED LIST changes: +METO-253 PO; +METO25TA93 PO
--- NOTE | 2018-08-12 16:30 | RT HOLTER TEST ---
FACILITY: [facility] - [place] PATIENT NAME: KARTIK ROBERTS : [id number] MR: [id number] V: [id number] EXAM DATE: ORDERING PHYSICIAN: DAVID CASTRO TECHNOLOGIST: ALMAZ Hook-up date: 2018-08-10 10:13:00 Duration: 47:59:00 Test Indications: BRADYCARDIA Medications: 920120 QRS complexes 204 Ventricular ectopics which represent <1 % of total QRS comp. 310 Supraventricular ectopics which represent <1 % of total QRS comp. * Paced QRS complexes which represent % of total QRS comp. VENTRICULAR ECTOPY 200 Isolated 0 Bigeminal Cycles 2 Couplets 0 Runs 0 Beats in Runs * Beats LONGEST at * BPM at :: -- * Beats FASTEST at * BPM at :: -- SUPRAVENTRICULAR ECTOPY 280 Isolated 8 Couplets 3 Runs 14 Beats in Runs 6 Beats LONGEST at 97 BPM at 05:11:02 2018-08-11 4 Beats FASTEST at 99 BPM at 10:53:15 2018-08-11 HEART RATES 31 MIN at 03:53:35 2018-08-11 57 AVG 98 MAX at 11:48:17 2018-08-10 LONGEST RR 1.680 secs at 01:54:17 2018-08-12 S-T LEVELS Channel 1 -12.800 mm MIN at 10:13:00 2018-08-10 -12.800 mm MAX at 10:13:00 2018-08-10 Channel 2 -12.800 mm MIN at 10:13:00 2018-08-10 -12.800 mm MAX at 10:13:00 2018-08-10 Channel 3 -12.800 mm MIN at 10:13:00 2018-08-10 -12.800 mm MAX at 10:13:00 2018-08-10 Baseline rhythm is sinus rhythm with 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 One strip note d as "minimum heart rate" is probably first degree AV block as well, but P waves are difficult to identify and could be a junctional escape rhyt hm. It was not identified in the other strips provided. Occasional ventricular ectopy with a few couplets. No runs were recorded. Occasional supraventricular ectopy with a few couplets and a few short runs (maximum six (6) beats). No pauses of more than two (2.0) seconds were recorded. Confirmed by YOKASTA ALAN ([id number]) on 08/12/2018 4:30:18 PM Referred By: CARSON REAL Overread By: YOKASTA ALAN
== END ==
LOC: RESP 01:52
PROVIDERS: ATTEND Internal Medicine Clinical Cardiac Electrophysiology
DX: I44.0 Atrioventricular block, first degree (principal); I49.3 Ventricular premature depolarization
CPT/HCPCS: 93225; 93226

== ENCOUNTER → 2018-09-28 | Outpatient (CLI) | payer MEDICARE, BC ==
[2018-04-25 14:32] VITALS: BMI 28.2
== END ==
LOC: LAB 09:40
PROVIDERS: ATTEND Internal Medicine Clinical Cardiac Electrophysiology
DX: I48.0 Paroxysmal atrial fibrillation (principal)
CPT/HCPCS: 36415; 82310; 82374; 82435; 82565; 82947; 84132; 84295; 84520

== ENCOUNTER → 2018-11-17 | Outpatient (CLI) | payer MEDICARE, BC ==
[2018-04-25 14:32] VITALS: BMI 28.2
[~2018-11-17] MED LIST changes: -VERA180T53 PO; +VERA180T57 PO
--- NOTE | 2018-11-17 13:48 | RADIOLOGY IMAGING REPORT ---
FAC[place] [facility] [place]IENT NAME: Jona Lara : 1935 MR: [id number] V: [id number] EXAM DATE: ORDERING PHYSICIAN: KATH GARIBAY TECHNOLOGIST: Location: [facility] - [place] Patient: Jona Lara : 1935 Visit/Account:[id number] Date of Sevice: 11/17/2018 Exam type: HAND COMPLETE LEFT History: Left hand knuckle swelling Comparison: None. Findings: Metallic ring surrounds the midshaft of the proximal phalanx of the left fourth finger. There appear s to be soft tissue swelling surrounding the MCP joint of the left fifth finger. There is no evidenc e of acute fracture or dislocation. There are moderate degenerative changes at the IP joint of the l eft thumb. IMPRESSION: 1. Soft tissue spine surrounding the left fifth MCP joint. No underlying fracture or dislocation se en. This may be arthritic in nature. Clinical correlation needed Report Dictated By: Pastora Pate MD at 11/17/2018 1:42 PM Report E-Signed By: Pastora Pate MD at 11/17/2018 1:44 PM WSN:[email or web address]
== END ==
LOC: RAD 13:07
PROVIDERS: ATTEND Family Medicine
DX: M25.442 Effusion, left hand (principal)

== ENCOUNTER → 2019-01-05 | Outpatient (CLI) | payer MEDICARE, BC ==
[2018-04-25 14:32] VITALS: BMI 28.2
== END ==
LOC: MRI 01:27
PROVIDERS: ATTEND Orthopaedic Surgery Hand Surgery
DX: S66.109A Unspecified injury of flexor muscle, fascia and tendon of unspecified finger at wrist and hand level, initial encounter (principal)

== ENCOUNTER → 2019-01-14 | Outpatient (CLI) | payer MEDICARE, BC ==
[2018-04-25 14:32] VITALS: BMI 28.2
--- NOTE | 2019-01-14 09:32 | RADIOLOGY IMAGING REPORT ---
FACILITY: [facility] - [place] PATIENT NAME: Jona Lara : 1935 MR: [id number] V: [id number] EXAM DATE: ORDERING PHYSICIAN: DERREK CURIEL TECHNOLOGIST: Location: [facility] - [place] Patient: Jona Lara : 1935 Visit/Account:[id number] Date of Sevice: 01/14/2019 XR ORBITS Indication: Evaluate for foreign body Comparison: None. Findings: No radiopaque foreign body seen. Safe for MRI. IMPRESSION: Safe for MRI. Report Dictated By: Chad Clark at 01/14/2019 9:25 AM Report E-Signed By: Chad Clark at 01/14/2019 9:26 AM WSN:[email or web address]
--- NOTE | 2019-01-14 13:13 | RADIOLOGY IMAGING REPORT ---
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 ADDITIONAL HISTORY: None. TECHNIQUE: Multiplanar multisequence magnetic resonance imaging of the left hand without intravenou s contrast. CONTRAST: None. COMPARISON: X-ray 11/22/2018 FINDINGS: Flexor tendons: Flexor visualized flexor tendons appear intact. Partial tearing of the flexor digito rum profundus tendon of the middle finger at the level of the metacarpal. No bowstringing or finding s to indicate nam abnormality. Small amount of fluid within the second flexor tendon sheath. Extensor tendons: Intact. Bones: No bone marrow edema to indicate fracture Joints: No joint effusion. No erosion. IMPRESSION: 1. Mild partial tearing of the flexor digitorum profundus tendon of the middle finger at the level o f the metacarpal. Flexor tendons are otherwise intact. Report Dictated By: Ricardo Solares MD at 01/14/2019 12:48 PM Report E-Signed By: Ricardo Solares MD at 01/14/2019 1:08 PM WSN:[email or web address]
== END ==
LOC: MRI 01:51
PROVIDERS: ATTEND Orthopaedic Surgery Hand Surgery
DX: S66.119A Strain of flexor muscle, fascia and tendon of unspecified finger at wrist and hand level, initial encounter (principal)
CPT/HCPCS: 70030; 73221